=== PATIENT | female | born 1945 | race Caucasian/White ===

== ENCOUNTER 2017-10-10 16:36 | Inpatient (IN) | payer MEDICARE, SELFPAY ==
[2017-10-10 16:37] VITALS: BP 144/84; PULSE 99; RESP 19; TEMP 39.4; O2SAT 90; BMI 24.5
--- NOTE | 2017-10-10 16:54 | RAD_ITS ---
XR Chest 1 View INDICATION: COUGH, WEAKNESS, AND CHILLS SINCE TUESDAYTEMP 103 IN TRIAGE COMPARISON: None TECHNIQUE: Frontal view of the chest FINDINGS: The heart size is mildly enlarged. Hazy and patchy opacities are seen at the left lung base. Lungs are hyperinflated with coarsened interstitial markings. Osseous structures are grossly unremarkable. RAD/Chest 1 View (Portable) IMPRESSION: Mild cardiomegaly. COPD. Patchy opacities at the left lung base, cannot exclude developing pneumonic infiltrate, consider follow-up with upright PA and lateral views.. at 1714 Reported and signed by: Neema Wiggins MD Electronically Signed: Neema Wiggins MD at 16:13 EST Tel , Service support ,
--- NOTE | 2017-10-10 16:58 | ED.DCSUM_ITS ---
- ER Visit Summary Date of Service: 10/10/17 Chief Complaint: [] Fever, URI symptoms History of Present Illness: The patient is a 72 F [] complaining of fever, generalized weakness, myalgias, cough productive of yellow sputum beginning 4-5 days ago. Patient denies chest pain or shortness of breath. Reports past medical history of hypertension. No other complaints at this time. Physical Examination: [] Temperature: 103. Remainder of vitals unremarkable. Cardiovascular exam is regular rate and rhythm. Lungs were clear to auscultation. Abdomen is soft nontender. No lower extremity edema. Test Results: [] Flu: Positive. CBC, BMP within normal limits with the exception of a potassium of 3.2. Chest x-ray shows left lower lobe infiltrate. Emergency Department Course and Treatment: [] Patient given intravenous fluids, Toradol. In light of the patient's overarching clinical picture with a high temperature and continued coughing she was given intravenous antibiotics for what is likely a early community-acquired pneumonia. We ambulated the patient with pulse oximetry and her pulse ox dropped to 89%. Case was discussed with the hospitalist. Patient will be admitted to the general medical floor for further treatment and evaluation. Labs and diagnostic studies discussed with the patient and they are amenable to admission. Treatment Plan: [] Admission for intravenous antibiotics and further symptom control. Disposition: [] Admission, stable. Impression: [] Community acquired pneumonia Influenza This note was generated with [employer] dictation software. It may contain incorrect words, spelling, and punctuation that were not noted in review of the chart prior to signing ED Disposition - Plan for ED Patient: Chief Complaint: Cough Referrals: Mingo Serna III, MD [Primary Care Provider] -
[2017-10-10] MEDS: Ketorolac 15 MG/ML Vial IV (17:23)
[2017-10-10] MEDS: 0.9% Normal Saline 1,000 ML 1000 ML IV (17:23)
[2017-10-10 17:24] LABS: Absolute Neutrophil Count 7.5 X10^3/uL (2.0-7.7); Basophil# 0.02 X10^3/uL; Basophil% 0.2 % (0-1); Hematocrit 40.3 % (37-47); Hemoglobin 13.7 g/dl (12.0-15.0); Lymphocyte % 7.7 % (19-41); Mean Corpuscular Hgb 29.5 pg (27.0-32.0); Mean Corpuscular Volume 86.9 fL (81-99); Mean Platelet Vol. 10.7 fl (6.2-12.0); Monocyte# 0.87 X10^3/uL; Monocyte% 9.5 % (0-10); Neutrophil % 82.4 % (47-70); Platelet Count 108 K/mm3 (150-450); RBC Distribution Width CV 13.8 % (11.6-14.6); RBC Distribution Width SD 43.9 fl (35.1-43.9); Red Blood Count 4.64 M/mm3 (4.2-5.4); White Blood Count 9.1 K/mm3 (4.4-11.0)
[2017-10-10 17:51] LABS: POSITIVE COUNT NO; POSITIVE DIFFERENTIAL NO; POSITIVE MORPHOLOGY NO
[2017-10-10 17:58] LABS: Anion Gap 10 (5-15); BUN 10 mg/dL (7-18); BUN/Creat Ratio 14.2 RATIO (10-20); Calcium,Total 8.2 mg/dL (8.5-10.1); Chloride 100 mmol/L (98-107); EST Glomerular Filtration Rate 87 mL/min (>60); Est Glom Filt Rate - Afr Amer 105 mL/min (>60); Estimated Creatinine Clearance 42.07 ml/min; Glucose 118 mg/dL (70-110); Potassium 3.2 mmol/L (3.5-5.1); Sodium Level 134 mmol/L (136-145)
[2017-10-10 19:22] VITALS: BP 143/65; PULSE 82; RESP 20; TEMP 38.5; O2SAT 92
[2017-10-10 19:39] VITALS: BP 143/65; PULSE 82; RESP 20; TEMP 38.5; O2SAT 92
[2017-10-10 21:05] VITALS: BP 129/60; PULSE 84; RESP 23; O2SAT 94
--- NOTE | 2017-10-10 21:27 | NURSING ---
321 FLU, PNEUMONIA LESIA
--- NOTE | 2017-10-10 21:39 | PCM.HP.STD ---
Problem List (1) HTN (hypertension) Status: Chronic (2) Influenza A Status: Acute History of Present Illness Date of Admission: 10/10/17 Chief Complaint: CAP The patient is a 72 year old female w/ h/o HTN admitted for CAP. She has been coughing since Thursday. She was in her usual state of health until within a few hours she experienced generalized malaise and myalgia. Malaise worsened over the next few days. She developed a productive cough. The intensity and frequency of the cough increased over the next few days. Nothing made the coughing better or worse. The quantity of sputum increased and was yellow. Her was ill a few days prior to her being ill. Past Medical History Past Medical History (Chronic Problems): Chronic Problems HTN (hypertension) (Chronic) Allergies No Known Allergies Allergy (Verified 10/10/17 16:37) Home Medications: Ambulatory Orders Medication Instructions Recorded Adrenix 1 tab PO DAILY 10/10/17 Atenolol [Tenormin] 25 mg PO DAILY 10/10/17 Citsym 1 tab PO QHS 10/10/17 Citsym 2 tab PO BREAKFAST 10/10/17 Integracel 1 dose PO DAILY 10/10/17 Lymphex 1 tab PO DAILY 10/10/17 Pelimune 2 tab PO TID 10/10/17 Smoking Status: Never smoker - *Family History Maternal History Items: No pertinent history Review of Systems Constitutional: Reports: Malaise, Weakness, Fatigue. Denies: Chills, Fever, Weight Change HEENT: Denies: Head Aches, Sinus Congestion, Sinus Drainage Cardiovascular: Denies: Chest Pain, Palpitations Respiratory: Reports: Cough, Shortness of Breath, Sputum production, Wheezing Gastrointestinal: Denies: Abdominal Pain, Nausea, Vomiting Genitourinary: Denies: Dysuria Musculoskeletal: Denies: Joint Pain, Joint Tenderness Skin: Denies: Rash, Wounds Neurological: Denies: Numbness, Tingling, Focal weakness Psychiatric: Denies: Anxiety, Depression, Homicidal Ideations, Suicidal Ideations Hematologic/ Lymphatic: Denies: Easy Bruising, Easy Bleeding VTE Information - Inpt Only VTE Present on Admission: No VTE Mechan Device Prophylaxis: SCD's VTE Pharm Prophylaxis ordered?: Yes Patient Problems: Active and Suspected Problems Influenza A (Acute) - Physical Exam General: Alert, Oriented x3, Cooperative HEENT: Atraumatic, PERRLA, EOMI, Normocephalic Neck: Supple, No JVD, Negative Carotid Bruits Lungs: Diminished, Rales - Crackle at left base Cardiovascular: Regular rate, No murmurs Abdomen: Bowel Sounds Present, Soft, Non Tender Extremities: No edema, Capillary Refill Less than 3 Seconds Skin: No rashes, No breakdown Musculoskeletal: No Tenderness to Palpation of Joints or Extremities Neurological: Cranial nerves II-XII grossly intact Psych/Mental Status: Normal Affect, Appropriate Vital Signs Temp Pulse Resp BP Pulse Ox 101.3 F H 84 23 H 129/60 H 94 10/10/17 19:39 10/10/17 21:05 10/10/17 21:05 10/10/17 21:05 10/10/17 21:05 Assessment/Plan Active and Suspected Problems Influenza A (Acute) 72 year old female w/ h/o HTN admitted for CAP. 1) CAP: Most likely secondary influenza pneumonia vs staph. Influenza pneumonia can lead to staph infection. Will start ceftriaxone and azithromycin for now. Will also start tamiflu given that she may still benefit from it given its several days out already. Cultures pending. 2) HTN: C/w meds. Monitor. 3) Hyponatremia: Likely secondary to hypovolemia hyponatremia. Hydration. 4) Hypokalemia: Replete. Monitor. 5) Prophylaxis: Heparin.
[2017-10-10 22:01] VITALS: BMI 24.4
[2017-10-10 22:12] VITALS: BP 152/74; PULSE 88; RESP 24; TEMP 38.3; O2SAT 94
[2017-10-10] MEDS: guaiFENesin 1,200 MG Tablet 1200 MG PO (23:12)
[2017-10-10] MEDS: Oseltamivir Phosphate 30 MG Capsule PO (23:12)
[2017-10-10] MEDS: 0.9% Normal Saline 1,000 ML 100 ML IV (23:13)
[2017-10-10 23:19] VITALS: RESP 24
[2017-10-11] VITALS (12 sets, daily range): BP systolic 109–143; BP diastolic 55–71; PULSE 81–88; RESP 20–26; TEMP 37.1–39.5; O2SAT 92–97
[2017-10-11] MEDS: Acetaminophen 325 MG Tablet 650 MG PO (00:09)
--- NOTE | 2017-10-11 00:35 | NURSING ---
Called to Lab for stat labs
[2017-10-11 01:15] LABS: Absolute Lymphocyte Count 1.63 X10^3/ul (0.83-4.51); Absolute Neutrophil Count 7.9 X10^3/uL (2.0-7.7); Basophil# 0.03 X10^3/uL; Basophil% 0.3 % (0-1); Color, Urine Yellow (Yellow); Differential Indicated SCAN CRITERIA MET; Eosinophil# 0.01 X10^3/uL; Eosinophils% 0.1 % (0-5); Glucose, Dipstick Normal (Normal); Hematocrit 36.7 % (37-47); Hemoglobin 12.8 g/dl (12.0-15.0); Ketone-Dipstick 15 mg/dl (Negative); Leukocyte Esterase-Dipstick Negative /ul (Negative); Lymphocyte # 1.63 X10^3/ul (4.0); Lymphocyte % 15.8 % (19-41); Mean Corp Hgb Conc 34.9 g/gl (32-36); Mean Corpuscular Hgb 29.9 pg (27.0-32.0); Mean Corpuscular Volume 85.7 fL (81-99); Mean Platelet Vol. 11.6 fl (6.2-12.0); Monocyte# 0.73 X10^3/uL; Monocyte% 7.1 % (0-10); Neutrophil # 7.85 X10^3/uL (2.7-7.7); Neutrophil % 76.2 % (47-70); Nitrite-Dipstick Negative (Negative); Occult Blood-Urine 150 /ul (Negative); POSITIVE COUNT NO; POSITIVE DIFFERENTIAL NO; POSITIVE MORPHOLOGY YES; Platelet Count 104 K/mm3 (150-450); Protein-Dipstick 30 mg/dl (Negative); RBC Distribution Width CV 13.8 % (11.6-14.6); RBC Distribution Width SD 42.5 fl (35.1-43.9); Red Blood Count 4.28 M/mm3 (4.2-5.4); Specific Gravity, Urine 1.015 (1.002-1.030); Urine Bilirubin Dipstick Negative (Negative); Urine Clarity Clear (Clear); Urine Urobilinogen Normal (Normal); White Blood Count 10.3 K/mm3 (4.4-11.0)
[2017-10-11 01:25] LABS: Lactic Acid 1.1 mmol/L (0.4-2.0)
[2017-10-11 01:27] LABS: ALB/GLOB Ratio 0.9 RATIO (0.9-2.4); AST(SGOT) 42 U/L (15-37); Alanine Aminotransfer ALT/SGPT 34 U/L (12-78); Albumin, Serum 3.1 g/dL (3.4-5.0); Alkaline Phosphatase 37 U/L (45-117); Anion Gap 8 (5-15); BUN 8 mg/dL (7-18); BUN/Creat Ratio 12.7 RATIO (10-20); Calcium,Total 7.7 mg/dL (8.5-10.1); Chloride 103 mmol/L (98-107); Creatinine, Serum 0.63 mg/dL (0.55-1.02); EST Glomerular Filtration Rate 99 mL/min (>60); Est Glom Filt Rate - Afr Amer 120 mL/min (>60); Estimated Creatinine Clearance 42.07 ml/min; Globulin 3.5 g/dL (2.2-4.2); Glucose 121 mg/dL (70-110); Potassium 3.4 mmol/L (3.5-5.1); Protein, Total 6.6 g/dL (6.4-8.2); Sodium Level 136 mmol/L (136-145)
[2017-10-11 01:41] LABS: Differential Comment SCANNED
[2017-10-11 08:27] LABS: Hematocrit 39.4 % (37-47); Hemoglobin 13.2 g/dl (12.0-15.0); Mean Corp Hgb Conc 33.5 g/gl (32-36); Mean Corpuscular Hgb 29.5 pg (27.0-32.0); Mean Corpuscular Volume 88.1 fL (81-99); Mean Platelet Vol. 11.8 fl (6.2-12.0); Platelet Count 97 K/mm3 (150-450); RBC Distribution Width CV 14.1 % (11.6-14.6); RBC Distribution Width SD 45.1 fl (35.1-43.9); Red Blood Count 4.47 M/mm3 (4.2-5.4); White Blood Count 13.3 K/mm3 (4.4-11.0)
[2017-10-11 08:38] LABS: Scan Indicated on CBC? Y/N NO
[2017-10-11 08:46] LABS: ALB/GLOB Ratio 0.8 RATIO (0.9-2.4); AST(SGOT) 38 U/L (15-37); Alanine Aminotransfer ALT/SGPT 31 U/L (12-78); Alkaline Phosphatase 38 U/L (45-117); Anion Gap 7 (5-15); BUN 7 mg/dL (7-18); BUN/Creat Ratio 10.9 RATIO (10-20); Calcium,Total 8.1 mg/dL (8.5-10.1); Chloride 109 mmol/L (98-107); Creatinine, Serum 0.64 mg/dL (0.55-1.02); EST Glomerular Filtration Rate 97 mL/min (>60); Est Glom Filt Rate - Afr Amer 117 mL/min (>60); Estimated Creatinine Clearance 42.07 ml/min; Globulin 3.6 g/dL (2.2-4.2); Glucose 100 mg/dL (70-110); Magnesium 1.9 mg/dL (1.8-2.4); Potassium 4.1 mmol/L (3.5-5.1); Protein, Total 6.6 g/dL (6.4-8.2); Sodium Level 140 mmol/L (136-145)
[2017-10-11] MEDS: 0.9% Normal Saline 1,000 ML 100 ML IV ×2 (09:27→21:14)
[2017-10-11] MEDS: Atenolol 25 MG Tablet PO (09:29)
[2017-10-11] MEDS: guaiFENesin 1,200 MG Tablet 1200 MG PO ×2 (09:29→21:13)
[2017-10-11] MEDS: Oseltamivir Phosphate 30 MG Capsule PO ×2 (09:29→21:13)
--- NOTE | 2017-10-11 10:02 | PN_ITS ---
Patient Problems: Active and Suspected Problems Influenza A (Acute) Subjective: Patient is a 72-year-old lady with past medical history significant for hypertension who presented with progressive shortness of breath her admission assessment was consistent with acute influenza A infection with superimposed pneumonia admitted to regular nursing floor where patient has since been managed per protocol. Objective: GENERAL: Appears ill looking HEENT: Clear conjunctiva, NECK; supple, normal thyroid, CHEST: Diminished to auscultation bilaterally, HEART: Regular S1 S2, no audible murmurs ABDOMEN: soft, normoactive bowel sounds, RECTAL: deferred EXTREMITIES: No edema, no clubbing, no cyanosis. CALL CENTER SUPPORT CONSULTANT: Awake, no lateralizing signs. SKIN: No lesions no erythema, Vitals/I&O's: Vital Signs Temp Pulse Resp BP Pulse Ox 99 F 81 20 H 122/62 H 97 10/11/17 09:00 10/11/17 09:00 10/11/17 09:21 10/11/17 09:00 10/11/17 09:21 Oxygen Flow Rate 3 Oxygen Delivery Method Nasal Cannula Weight: 62.5 kg Body Mass Index (BMI) 24.4 Intake and Output for Last 24 Hours 10/09/17 10/10/17 10/11/17 23:59 23:59 23:59 Intake Total 938 / 938 Output Total 100 / 100 Balance 838 / 838 Microbiology Past 72 Hours 10/11/17 00:45 Urine, Clean Catch Streptococcus pneumoniae Antigen (M - Final 10/11/17 00:45 Urine, Clean Catch Legionella Antigen - Final Laboratory Results 10/11/17 00:45: Lactic Acid 1.1 10/11/17 00:45: WBC 10.3, RBC 4.28, Hgb 12.8, Hct 36.7 L, MCV 85.7, MCH 29.9, MCHC 34.9, RDW 13.8, RDW Differential 42.5, Plt Count 104 L, MPV 11.6, Immature Gran % (Auto) 0.500, Neut % (Auto) 76.2 H, Lymph % (Auto) 15.8 L, Saunders % (Auto) 7.1, Eos % (Auto) 0.1, Baso % (Auto) 0.3, Absolute Neuts (auto) 7.9 H, Absolute Lymphs (auto) 1.63, Total Counted Not Reportable, Differential Comment SCANNED 10/11/17 00:45: Sodium 136, Potassium 3.4 L, Chloride 103, Carbon Dioxide 25.0, Anion Gap 8, BUN 8, Creatinine 0.63, Estim Creat Clear Calc 42.07, Est GFR (MDRD ) Af Amer 120, Est GFR (MDRD) Non-Af 99, BUN/Creatinine Ratio 12.7, Glucose 121 H, Calcium 7.7 L, Total Bilirubin 0.90, AST 42 H, ALT 34, Alkaline Phosphatase 37 L, Total Protein 6.6, Albumin 3.1 L, Globulin 3.5, Albumin/Globulin Ratio 0.9 10/11/17 00:45: Urine Color Yellow, Urine Clarity Clear, Urine pH 6.0, Ur Specific [place] 1.015, Urine Protein 30 H, Urine Glucose (UA) Normal, Urine Ketones 15 H, Urine Occult Blood 150 H, Urine Nitrite Negative, Urine Bilirubin Negative, Urine Urobilinogen Normal, Ur Leukocyte Esterase Negative 10/11/17 07:35: WBC 13.3 H, RBC 4.47, Hgb 13.2, Hct 39.4, MCV 88.1, MCH 29.5, MCHC 33.5, RDW 14.1, RDW Differential 45.1 H, Plt Count 97 L, MPV 11.8 10/11/17 07:35: Sodium 140, Potassium 4.1, Chloride 109 H, Carbon Dioxide 24.0, Anion Gap 7, BUN 7, Creatinine 0.64, Estim Creat Clear Calc 42.07, Est GFR (MDRD ) Af Amer 117, Est GFR (MDRD) Non-Af 97, BUN/Creatinine Ratio 10.9, Glucose 100 , Calcium 8.1 L, Magnesium 1.9, Total Bilirubin 1.00, AST 38 H, ALT 31, Alkaline Phosphatase 38 L, Total Protein 6.6, Albumin 3.0 L, Globulin 3.6, Albumin/Globulin Ratio 0.8 L Current Medications Acetaminophen (Tylenol) 650 mg PO Q4H PRN PRN PRN Reason: FEVER Last Admin: 10/11/17 00:09 Dose: 650 mg Atenolol (Tenormin (Beta Maria Luisa)) 25 mg PO DAILY [facility] Last Admin: 10/11/17 09:29 Dose: 25 mg Guaifenesin (Mucinex) 1,200 mg PO BID [facility] Last Admin: 10/11/17 09:29 Dose: 1,200 mg Sodium Chloride () 1,000 mls @ 100 mls/hr IV .Q10H [facility] Last Admin: 10/11/17 09:27 Dose: 100 mls/hr Ceftriaxone Sodium (Rocephin) 1 gm in 50 mls @ 100 mls/hr IV Q24 [facility] Azithromycin 500 mg/ Dextrose 255 mls @ 250 mls/hr IV Q24 [facility] Stop: 10/13/17 11:02 Oseltamivir Phosphate (Tamiflu) 30 mg PO BID [facility] Stop: 10/15/17 10:01 Last Admin: 10/11/17 09:29 Dose: 30 mg Sodium Chloride () 5 - 30 ml IV UD PRN PRN Reason: SALINE FLUSH Assessment/Plan Active and Suspected Problems Influenza A (Acute) Patient is a 72-year-old lady with past medical history significant for hypertension who presented with progressive shortness of breath her admission assessment was consistent with acute influenza A infection with superimposed pneumonia admitted to regular nursing floor where patient has since been managed per protocol 1. Acute influenza A infection patient treated with pneumonia 2. Pneumonia superimposed on acute influenza A infection: Cultures were sent patient started on Rocephin and Zithromax in addition to supplemental oxygen 3. Hyponatremia secondary to hypovolemic hyponatremia resolved with IV resuscitation 4. Hypokalemia corrected per protocol 5. Hypertension patient blood pressure stable did continue with home meds 6. DVT prophylaxis SC heparin Code Visit Inpatient E&M: 33452 [facility] Hosp L3
[2017-10-11] MEDS: Ceftriaxone 1 GM/50 ML BAG IV (10:48)
--- NOTE | 2017-10-11 21:56 | NURSING ---
Blood sugar 95, orange juice provided before going to bed.
[2017-10-12] VITALS (8 sets, daily range): BP systolic 121–142; BP diastolic 64–71; PULSE 71–84; RESP 16–20; TEMP 36.7–37.3; O2SAT 93–95
[2017-10-12] MEDS: 0.9% Normal Saline 1,000 ML 100 ML IV (06:40)
[2017-10-12] MEDS: Ceftriaxone 1 GM/50 ML BAG IV (08:44)
[2017-10-12] MEDS: Atenolol 25 MG Tablet PO (08:44)
[2017-10-12] MEDS: Oseltamivir Phosphate 30 MG Capsule PO (08:44)
[2017-10-12] MEDS: guaiFENesin 1,200 MG Tablet 1200 MG PO (08:44)
--- NOTE | 2017-10-12 10:13 | NURSING ---
1000 zithromax not on unit for pt administration-Rx called they said it was sent earlier, not in tubes/tube system, not in either med room or fridge-charge nurse on ms2 called, she will look
--- NOTE | 2017-10-12 11:10 | CASEMGMT ---
RN CHEPE Face to Face with patient for initial transition planning/care coordination assessment. RN CM introduced self and role at [facility]. Patient lying in bed, alert and oriented. Patient willing to participate in assessment and is able to answer all questions appropriately. Care providers, pharmacy, and demographics verified. See link attached. Patient wishes to discharge home, denies need for home health at this time. Patient states she has no further needs or concerns at this time. CM to follow for discharge planning needs that may arise. Disposition Plan: Patient to discharge home with family support and follow-up plans in place.
--- NOTE | 2017-10-12 16:22 | PCM.DC ---
- Discharge Diagnoses Current Active Problems: Current Active and Chronic Problems HTN (hypertension) (Chronic) Influenza A (Acute) You will use the following diet at home:: Regular Discharge Activity: Return to Normal Activity Allergies/Adverse Reactions: Allergies No Known Allergies Allergy (Verified 10/10/17 16:37) Medications to take at Discharge Adrenix 1 tab PO DAILY 10/10/17 Atenolol [Tenormin] 25 mg PO DAILY 10/10/17 Citsym 1 tab PO QHS 10/10/17 Citsym 2 tab PO BREAKFAST 10/10/17 Integracel 1 dose PO DAILY 10/10/17 Lymphex 1 tab PO DAILY 10/10/17 Pelimune 2 tab PO TID 10/10/17 Cefdinir [Omnicef [equiv]] 300 mg PO Q12H #10 cap 10/12/17 Oseltamivir Phosphate [Tamiflu] 30 mg PO BID #6 cap 10/12/17 The following prescriptions were given: Cefdinir [Omnicef [equiv]] 300 mg PO Q12H #10 cap Oseltamivir Phosphate [Tamiflu] 30 mg PO BID #6 cap Primary Care Physician: Mingo Serna III, MD [Primary Care Provider] - In 1 Week
--- NOTE | 2017-10-12 16:23 | PCM.DC.SUM ---
Discharge Date and Diagnosis Date of Admission: 10/10/17 Date of Discharge: 10/12/17 - Primary Discharge Diagnosis Active and Suspected Problems Influenza A (Acute) - Secondary Discharge Diagnosis Chronic Problems HTN (hypertension) (Chronic) Hospital Course and Treatment Operations: None Procedures: None Summary of Care Provided: The patient is a 72 year old F here today with progressive cough, shortness of breath and weakness. Chest x-ray in the emergency room showed left lobe opacities, her influenza test was positive for influenza A. The patient was placed on Tamiflu and antibacterial agents. She did improve clinically with treatment , we are discharging home to complete course of Tamiflu and oral antibiotics. On exam at the time of discharge; vital signs were stable. He was alert and oriented to time place and person. He did not appear to be any form of distress. S1 and S2 heard no murmur or gallop Lung exam was clear to auscultation with no adventitious sounds. Abdomen was soft nontender with normal bowel sounds. extremity exam did not reveal any edema, palpable pulses bilaterally. Neurologic exam was grossly intact. Discharge Diet: No Restrictions Discharge Activity: Return to Normal Activity Home Medications: Medications to take at Discharge Adrenix 1 tab PO DAILY 10/10/17 Atenolol [Tenormin] 25 mg PO DAILY 10/10/17 Citsym 1 tab PO QHS 10/10/17 Citsym 2 tab PO BREAKFAST 10/10/17 Integracel 1 dose PO DAILY 10/10/17 Lymphex 1 tab PO DAILY 10/10/17 Pelimune 2 tab PO TID 10/10/17 Cefdinir [Omnicef [equiv]] 300 mg PO Q12H #10 cap 10/12/17 Oseltamivir Phosphate [Tamiflu] 30 mg PO BID #6 cap 10/12/17 Following Prescrptions Were Given to Patient: Cefdinir [Omnicef [equiv]] 300 mg PO Q12H #10 cap Oseltamivir Phosphate [Tamiflu] 30 mg PO BID #6 cap Primary Care Physician: Mingo Serna III, MD [Primary Care Provider] - In 1 Week Disposition: Home Patient Condition:: Good Meaningful Use Info Meaningful Use Diagnoses (Choose all that apply): None applicable Code Visit Inpatient E&M: 65317 [facility] Hosp
== END 2017-10-12 17:30 | disposition home or self-care (01) | DRG 194 ==
LOC: ED 17:04 → MS3 21:30
PROVIDERS: Admitting Provider Internal Medicine; Emergency Provider Emergency Medicine; Family Provider Family Medicine; PCP Family Medicine; Visit Provider Internal Medicine
DX: J10.00 Influenza due to other identified influenza virus with unspecified type of pneumonia (principal); E87.1 Hypo-osmolality and hyponatremia; I10 Essential (primary) hypertension; E87.6 Hypokalemia; Z79.899 Other long term (current) drug therapy
CPT/HCPCS: 36415; 71045; 80048; 80053; 81002; 83605; 83735; 85025; 85027; 87040; 87070; 87205; 87449; 87804; 97802; 99283; J7030; J7050; A4216

== ENCOUNTER → 2021-04-04 12:25 | Outpatient (CLI) | payer MEDICARE, SELFPAY ==
[2021-04-04 07:10] VITALS: BMI 24.2
--- NOTE | 2021-04-04 08:15 | CYST_PTH ---
PATIENT: JESÚS JEFF LOC: LAB U#:[id number] AGE/SX: 79/F ROOM: RE04/04/[address]: Dr. Cristofer Serna MD : 1945 BED: DIS: SPEC #: [id number] RECD: 04/04/21 12:01 STATUS: KARINE DENNISE #: [id number] NICOLLE: 04/04/21 08:[address]: Cristofer Serna DEPT: SURGICAL PATHOLOGY RECD BY: Leora Villatoro ENTERED: 04/04/21 12:58 SP TYPE: Cyst OTHR DR: No Primary Care Phys Tissues: CYST Procedures: Surgery Specimen Level III HEADER OPERATION: Excision scalp ruptured sebaceous cyst PRE-OP DIAGNOSIS: Multiple scalp cysts TISSUE SUBMITTED: Ruptured sebaceous cyst of scalp MICROSCOPIC DIAGNOSIS Sebaceous cyst of scalp, excision: Trichilemmal cysts with focal calcifications. See comment. CONCEPCIÓN:rafita 04/05/2021 COMMENT The largest cyst measures 1 cm in greatest dimension. Three additional smaller cysts are also noted. MICROSCOPIC DESCRIPTION Slides are reviewed. GROSS DESCRIPTION Received in fixative is one container labeled with the patient's name and designated scalp. The specimen consists of a piece of skin with underlying tissue. The skin ellipse measures 3.5 x 0.7 cm. The underlying tissue shows a cyst measuring 1 x 1 x 1 cm. The rest of the skin measures up to 0.5 cm in thickness. The specimen is inked and serially sectioned and reveals the cyst is filled with grimaldo sebum-like material. The entire specimen is submitted in two cassettes. / SJ:rafita 04/04/21 TC:5 CPT: 63207
== END ==
PROVIDERS: Referring Provider Surgery; Visit Provider Surgery
DX: L72.12 Trichodermal cyst (principal)
CPT/HCPCS: 88304

== ENCOUNTER 2023-01-29 21:38 | Emergency (ER) | payer MEDICARE, SELFPAY ==
[2023-01-29 21:39] VITALS: BP 143/76; PULSE 93; RESP 16; TEMP 36.4; O2SAT 98
--- NOTE | 2023-01-30 00:01 | EDS_ITS ---
HPI History of Present Illness Chief Complaint: Other, Pain/Inj Informant: patient Narrative Narrative: Patient presents just after she bumped into something with her left lower leg, and suddenly had bleeding from that area that was significant and she had difficulty stopping. Prior to coming here, she caked it in [employer] pepper. She denies any systemic symptoms or pain. History of varicose veins. She takes no anticoagulants or antiplatelet medications, just a lot of supplements and antihypertensives. PFSH PFS Medical History HTN (hypertension) Scalp cyst Home Medications Adrenix 1 tab PO DAILY ENERGY SUPPLEMENT 10/10/17 [History Last Taken 10/10/17 07:00] Citsym 1 tab PO QHS LEG SWELLING 10/10/17 [History Last Taken 10/09/17 17:00] Citsym 2 tab PO BREAKFAST LEG EDEMA 10/10/17 [History Last Taken 10/10/17 07:00] Integracel 1 dose PO DAILY SUPPLEMENT FOR ARTERIES 10/10/17 [History Last Taken 10/10/17 07:00] Lymphex 1 tab PO DAILY LEG SWELLING 10/10/17 [History Last Taken 10/10/17 07:00] Pelimune 2 tab PO TID IMMUNE SYSTEM 10/10/17 [History Last Taken 10/10/17 07:00] hydrochlorothiazide 12.5 mg capsule 12.5 mg PO DAILY 03/14/21 [History Last Taken Unknown] losartan 50 mg tablet 50 mg PO DAILY 03/14/21 [History Last Taken Unknown] Allergy/AdvReac Type Severity Reaction Status Date / Time lisinopril Allergy Unknown Unknown Verified 01/29/23 21:41 Family History Sister Breast cancer CVA (cerebral vascular accident) Father Hypertension Surgical History History of removal of cyst Social History Smoking Status: Never smoker second hand exposure: No alcohol intake: never caffeine: Yes what type of physical activity do you participate in: walking and running ROS ROS ED Constitutional Constitutional ED: Denies chills or fever(s) Musculoskeletal Musculoskeletal: Denies extremity pain or neck pain Integumentary Reports Abrasions; Denies rash or wounds Neurologic Neurologic: Denies paresthesias or weakness EXAM Physical Exam Const Vital Signs: 01/29/23 21:39 Temperature 97.6 F L Temperature Source Temporal Pulse Rate 93 Respiratory Rate 16 Blood Pressure 143/76 H Blood Pressure Mean 98 Pulse Ox 98 Oxygen Delivery Method Room Air Positive well nourished and well developed General Appearance ED: well developed and NAD Neck full ROM and supple Back/Spine normal ROM and normal to inspection Extremity normal to inspection and full ROM Extremity Narrative: Multiple varicose veins especially in the area of interest distal left lower extremity, but also present on the right. There is a small scab/clot over a point over one of the varicose veins left lateral/anterior distal lower leg. There is no active bleeding or tenderness. I scraped the lot of cayenne pepper off of her leg. There were no other lesions or signs of infection. Neurovascular intact distally. Neuro oriented x3, no focal motor deficits and no sensory deficits noted Sensorium / Orientation: alert Psych mental status grossly normal and thought process normal Skin Skin Narrative: Pinpoint sized wound over varicose vein left lower leg, see above. Rashes: no rashes MDM MDM MDM Narrative Medical decision making narrative: No active bleeding. Patient reassured, I do not think she needs blood counts, her blood pressure is relatively well controlled here, and I will have nursing place a bandage with a mild amount of pressure over it and give the patient appropriate instructions and reasons to return. Discharge Plan Triage Chief Complaint: Other, Pain/Inj ED Provider: Isidro Benavides Dx/Rx/DC Orders Clinical Impression: Hemorrhage of varicose veins of left lower extremity Instructions: ED Varicose Veins Prescriptions: No Action hydrochlorothiazide 12.5 mg capsule 12.5 mg PO DAILY losartan 50 mg tablet 50 mg PO DAILY Adrenix 1 tab PO DAILY Citsym 2 tab PO BREAKFAST Citsym 1 tab PO QHS Integracel 1 dose PO DAILY Label Comments: TAKES 1 SCOOP DAILY Lymphex 1 tab PO DAILY Pelimune 2 tab PO TID Primary Care Provider: Care Physician,No Primary Referrals: Care Physician,No Primary [Primary Care Provider] - Doctor,Your [Non-Staff] - As Needed (or ER if you cannot stop recurrent bleeding) Disposition Disposition: Home, Self Care
[2023-01-30 00:13] VITALS: BMI 24.8
[2023-01-30 00:19] VITALS: BP 142/74; PULSE 69; RESP 18; O2SAT 96; O2SAT 97
== END 2023-01-30 00:24 | disposition home or self-care (01) ==
LOC: ED 01-30 00:07
PROVIDERS: Emergency Provider Emergency Medicine; Visit Provider Emergency Medicine
DX: I83.892 Varicose veins of left lower extremity with other complications (principal); I10 Essential (primary) hypertension
CPT/HCPCS: 99284

== ENCOUNTER → 2023-11-05 | Outpatient (CLI) | payer MEDICARE, SELFPAY ==
[2023-11-05 11:07] LABS: AST(SGOT) 27 U/L (15-37); Alanine Aminotransfer ALT/SGPT 33 U/L (13-56); Albumin, Serum 3.7 g/dL (3.2-5.0); Alkaline Phosphatase 45 U/L (45-117); Anion Gap 2 (5-15); BUN 13 mg/dL (7-18); BUN/Creat Ratio 20.4 RATIO (10-20); Calcium,Total 8.8 mg/dL (8.5-10.1); Chloride 103 mmol/L (98-107); Creatinine, Serum 0.64 mg/dL (0.55-1.02); EST Glomerular Filtration Rate 96 mL/min (>60); Est Glom Filt Rate - Afr Amer 116 mL/min (>60); Globulin 3.8 g/dL (2.2-4.2); Glucose 93 mg/dL (74-106); Magnesium 2.1 mg/dL (1.6-2.6); Potassium 2.8 mmol/L (3.5-5.1); Protein, Total 7.5 g/dL (6.4-8.2); Sodium Level 135 mmol/L (136-145)
--- OUTSIDE RECORDS SUMMARY | 2023-11-05 12:13 | XMS RPT_ITS | CCD ---
Author Name Unknown Address [facility] [address] [place] [id number] Organization [facility] Care Team Providers Care Gang Drill Press Operator Name Role Phone Berenice Zamora MD Primary Care Provider BERENICE ZAMORA Primary Care Unavailable AUGUSTIN BENEDICT Referring Unavailable AUGUSTIN BENEDICT Referring Unavailable BERENICE ZAMORA Primary Care Unavailable BERENICE ZAMORA Primary Care Unavailable AUGUSTIN BENEDICT Attending Unavailable BERENICE ZAMORA Primary Care Unavailable KENDRA BRICENO Attending Unavailable BERENICE ZAMORA Primary Care Unavailable KENDRA BRICENO Attending Unavailable BERENICE ZAMORA Primary Care Unavailable KENDRA BRICENO Attending Unavailable BERENICE ZAMORA Primary Care Unavailable KENDRA BRICENO Attending Unavailable Allergies Allergy Classification Reported Allergen(s) Allergy Type Date of Onset Reaction(s) Facility (7 sources) Lisinopril; Translations: [LISINOPRIL] Drug Allergy 05-27-2018 Cough [facility] Medications Current Medications Medication Drug Class(es) Dates Sig (Normalized) Sig (Original) cephalexin 500 mg oral capsule (3 sources) Cephalosporin Antibacterial Start: 03-17-2023 End: 03-27-2023 take 1 capsule by mouth four times daily cephALEXin (KEFLEX) 500 mg capsule Indications: Non-healing wound of left lower extremity Take 1 capsule by mouth four times daily for 10 days. 40 capsule 0 03/17/2023 03/27/2023 Active Completed/Discontinued Medications Medication Drug Class(es) Dates Sig (Normalized) Sig (Original) COMPOUNDED PRESCRIPTION (8 sources) End: 02-13-2023 COMPOUNDED PRESCRIPTION Taking supplements from [facility]: Pelimmune, Lympha EX, Adrenix, Integra Cell, NT-Bacta, Kardi-Ar, Micro-Site, Pro-Kaylyn, Para-Mac, Yoli-Ex 0 02/13/2023 Discontinued (Course of therapy completed) Problems Active Problems Problem Classification Problem Date Documented Da te Episodic/Chronic Cardiac dysrhythmias (1 source) Cardiac arrhythmia, unspecified; Translations: [Irregular heart rhythm] Onset: 10-06-2023 Chronic Essential hypertension (9 sources) Essential hypertension; Translations: [Essential (primary) hypertension] Onset: 11-16-2017 Chronic Genitourinary symptoms and ill-defined conditions (1 source) Other microscopic hematuria; Translations: [Microscopic hematuria] Onset: 10-06-2023 Episodic Other injuries and conditions due to external causes (1 source) Wound ; Translations: [Injury, unspecified, subsequent encounter] Episodic Past or Other Problems Problem Classification Problem Date Documented Da te Episodic/Chronic Fluid and electrolyte disorders (1 source) Hypokalemia; Translations: [Hypokalemia] Onset: 03-03-2023 Episodic Open wounds of extremities (3 sources) Open wound of lower limb; Translations: [Unspecified open wound, left lower leg, initial encounter] Onset: 03-17-2023 Episodic Other injuries and conditions due to external causes (1 source) Injury, unspecified, subsequent encounter; Translations: [Healing wound] Onset: 03-27-2023 Episodic Results Test Name Value Interpretation Reference Range Facil ity Vital Signs Date Time Vital Sign Value Performing Clinician Jose David odonnell 03-27-2023 14:17-0400 Body weight 63.05 kg Kendra Briceno APRN.CNP Work Phone: [facility] 03-27-2023 14:17-0400 Diastolic blood pressure 60 mm[Hg] Kendra Briceno APRN.ROTARY VENEER MACHINE OPERATOR Work Phone: [facility] 03-27-2023 14:17-0400 Heart rate 74 /min Kendra Briceno APRN.CNP Work Phone: [facility] 03-27-2023 14:17-0400 Respiratory rate 16 /min Kendra Briceno APRN.CNP Work Phone: [facility] 03-27-2023 14:17-0400 SaO2% (BldA) [Mass fraction] 97 % Kendra Briceno APRN.CNP Work Phone: [facility] 03-27-2023 14:17-0400 Systolic blood pressure 110 mm[Hg] Kendra Tannhof REPAIR SERVICE DISPATCHER.ROTARY VENEER MACHINE OPERATOR Work Phone: [facility] 03-23-2023 08:03-0400 Body weight 63.69 kg Kendramiranda Donatohof REPAIR SERVICE DISPATCHER.ROTARY VENEER MACHINE OPERATOR Work Phone: [facility] 03-23-2023 08:03-0400 Diastolic blood pressure 60 mm[Hg] Kendra Tannhof REPAIR SERVICE DISPATCHER.ROTARY VENEER MACHINE OPERATOR Work Phone: [facility] 03-23-2023 08:03-0400 Heart rate 70 /min Kendra Tannhof REPAIR SERVICE DISPATCHER.ROTARY VENEER MACHINE OPERATOR Work Phone: [facility] 03-23-2023 08:03-0400 Respiratory rate 16 /min Kendra Tannhof REPAIR SERVICE DISPATCHER.ROTARY VENEER MACHINE OPERATOR Work Phone: [facility] 03-23-2023 08:03-0400 SaO2% (BldA) [Mass fraction] 96 % Kendra Tannhof REPAIR SERVICE DISPATCHER.ROTARY VENEER MACHINE OPERATOR Work Phone: [facility] 03-23-2023 08:03-0400 Systolic blood pressure 130 mm[Hg] Kendra Tannhof REPAIR SERVICE DISPATCHER.ROTARY VENEER MACHINE OPERATOR Work Phone: [facility] 02-13-2023 09:01-0400 Body temperature 97.3 [degF] Augustin Jak REPAIR SERVICE DISPATCHER.ROTARY VENEER MACHINE OPERATOR Work Phone: [facility] 02-13-2023 09:01-0400 Body weight 63.41 kg Augustin Jak REPAIR SERVICE DISPATCHER.ROTARY VENEER MACHINE OPERATOR Work Phone: [facility] 02-13-2023 09:01-0400 Diastolic blood pressure 74 mm[Hg] Augustin Jak REPAIR SERVICE DISPATCHER.ROTARY VENEER MACHINE OPERATOR Work Phone: [facility] 02-13-2023 09:01-0400 Heart rate 51 /min Augustin Jak REPAIR SERVICE DISPATCHER.ROTARY VENEER MACHINE OPERATOR Work Phone: [facility] 02-13-2023 09:01-0400 Respiratory rate 16 /min Augustin Jak REPAIR SERVICE DISPATCHER.ROTARY VENEER MACHINE OPERATOR Work Phone: [facility] 02-13-2023 09:01-0400 SaO2% (BldA) [Mass fraction] 98 % Augustin Benedict APRN.CNP Work Phone: [facility] 02-13-2023 09:01-0400 Systolic blood pressure 118 mm[Hg] Augustin Benedict APRN.CNP Work Phone: [facility] Encounters Encounter Date Encounter Type Care Provider Facility Start: 10-06-2023 End: 10-07-2023 ambulatory [facility] Facility:[facility] Start: 03-27-2023 End: 03-28-2023 ambulatory [facility] Facility:[facility] Start: 03-27-2023 End: 03-27-2023 Patient encounter procedure Kendra Briceno APRN.CNP Work Phone: [facility] Plan of Treatment Date Care Activity Detail Author Start: 02-13-2026 DIABETES SCREEN DIABETES SCREEN [facility] Start: 12-16-2024 DIABETES SCREEN DIABETES SCREEN [facility] Start: 03-27-2024 ANNUAL PCP TEAM VP STRATEGY LETICIA DISEASE VISIT ANNUAL PCP TEAM CHRONIC DISEASE VISIT [facility] Start: 03-27-2024 BP CONTROLLED (<130/80) BP CONTROLLE D (<130/80) [facility] Start: 03-23-2024 ANNUAL PCP TEAM VP STRATEGY LETICIA DISEASE VISIT ANNUAL PCP TEAM CHRONIC DISEASE VISIT [facility] Start: 03-17-2024 ANNUAL PCP TEAM VP STRATEGY LETICIA DISEASE VISIT ANNUAL PCP TEAM CHRONIC DISEASE VISIT [facility] Start: 02-14-2024 ANNUAL PCP TEAM VP STRATEGY LETICIA DISEASE VISIT ANNUAL PCP TEAM CHRONIC DISEASE VISIT [facility] Start: 02-14-2024 BP CONTROLLED (<130/80) BP CONTROLLE D (<130/80) [facility] Start: 09-08-2023 BONE DENSITY BONE DENSITY [facility] Immunizations Immunization Date Immunization Notes Care Provider Kong sparrow 11-08-2014 tetanus and diphther ia toxoids, adsorbed, preservative free, for adult use (5 Lf of tetanus toxoid and 2 Lf of diphtheria toxoid) Duc Patel APRN.ROTARY VENEER MACHINE OPERATOR, DNP Work Phone: [facility] Work Phone: Payers Date Payer Category Payer Medicare [id number] 2022 Unknown ANTHEM BLUE CROS S AND BLUE SHIELD ANTHEM MEDIBLUE HMO [id number] 2022-Present [phone] [address] [place] [address] HMO [id number] 2021 Medicare HUMANA MEDICARE HU[employer]NA MEDICARE PPO [id number] 2021-Present [phone] [address] [address] [place] [address] PPO [id number] Social History Date Type Detail Facility Start: 09-15-2017 End: 09-08-2022 Tobacco smoking status NHIS Never smoked tobacco [facility] Start: 09-15-2017 End: 09-08-2022 Tobacco use and exposure Smokeless tobacco non-user [facility] Start: 12-16-2021 End: 03-27-2023 Alcohol intake Current non-drinker of alcohol (finding) [facility] Start: 1945 Sex Assigned At Not on file [facility] Clinical Notes 05-30-2014 to 10-06-2023 Patient InstructionsKendra Briceno APRN.CNP - 03/27/2023 2:00 PM Valentine Briceno APRN.CNP - 03/23/2023 8:20 AM EDTPatient InstructionsPatient Instructions Note Date & Type Note Facility 10-06-2023 Note HNO ID: [id number] Author: Kendra Briceno APRN.CNP Service: ? Author Type: Nurse Practitioner Type: Progress Notes Filed: 10/06/2023 1:20 PM Note Text: This is a 78 year old female who presents today with: Patient presents with: Acute Visit: irregular heart beat. and blood in urine HISTORY OF PRESENT ILLNESS: Jesús June is a 78 year old female. Patient presents with: Acute Visit: irregular heart beat. and blood in urine Here in the office with several concerns, refers that she went to her Chiropractor early September and was told she had an irregular heart beat as well as small amount of blood in the urine. Palpitations: history of HTN, denies feeling any palpitations, skipped beats, chest pain, dizziness, or edema. Refers she does drink more than 6 cups of coffee per day. Blood in the urine, no urinary symptoms. No family history of kidney disease. PAST MEDICAL HISTORY: PAST MEDICAL HISTORY Diagnosis Date NEGATIVE MEDICAL HISTORY PAST SURGICAL HISTORY Procedure Laterality Date DEBRIDEMENT OPEN WOUND 20 SQ CM/< 05/30/14 Debridement infected scalp cysts PAST SURGICAL HISTORY OF 1968? cyst removal from breast, ? side REM LESION NEC,HND,SCAL 3.1-4.0CM 09/20/14 Exc. 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 (Patient not taking: No sig reported) losartan-hydroCHLOROthiazide (HYZAAR) 50-12.5 mg per tablet Take 1 tablet by mouth once daily. COMPOUNDED PRESCRIPTION Additional supplements: Ecklo-Fm, Turmero, Immuno-Synbiotic, Natural D-Hist (Patient not taking: Reported on 03/23/2023) No current facility-administered medications for this visit. FAMILY HISTORY Problem Relation Age of Onset Stroke Sister Hypertension Brother Social History Tobacco Use Smoking status: Never Smokeless tobacco: Never Vaping Use Vaping Use: Never used Substance Use Topics Alcohol use: No Drug use: No REVIEW OF SYSTEMS GENERAL: No weight loss, malaise or fevers/chills HEENT: Negative for frequent or significant headaches, No changes in hearing or vision. NECK: Negative for lumps, goiter, pain and significant neck swelling RESPIRATORY: Negative for cough, hemoptysis, wheezing, dyspnea or shortness of breath CARDIOVASCULAR: Negative for chest pain, leg swelling, orthopnea, or palpitations GI: No nausea, vomiting, or diarrhea/constipation. No hematochezia/melena. No heartburn or reflux symptoms. : No history of dysuria, frequency or incontinence MUSCULOSKELETAL: Negative for joint pain or swelling. SKIN: Negative for lesions, rash, and itching ENDOCRINE: Negative for cold or heat intolerance, polyuria, polydipsia and goiter NEURO: No history of headaches, syncope, paralysis, seizures or tremors MOOD: Negative for depression, anxiety, or suicidal ideation. EXAM: BP 130/66 Pulse 88 Resp 16 Wt 62.1 kg (137 lb) SpO2 96% BMI 24.27 kg/m? PHYSICAL EXAM: General Appearance: Well appearing, alert, in no acute distress, well-hydrated, well nourished. Skin: Skin color, texture, turgor normal, no suspicious rashes or lesions. Head: Normocephalic, no masses, lesions, tenderness or abnormalities. Eyes: Anicteric sclera. Extraocular movements are intact. Lungs: Lungs clear to auscultation. No wheezing, rhonchi, rales. Heart: Positive findings: irregular rhythm. Notable paused beat. Abdomen: Normal abdominal exam, Abdomen soft, non-tender. Bowel sounds normal. No masses, organomegaly, Negative CVA tenderness. Extremities: No deformities, edema, skin discoloration, clubbing or cyanosis. Good capillary refill. Peripheral Pulses: Normal, Capillary refill <2secs, strong peripheral pulses, Pulses palpable. Neurologic: Gait normal. Sensation grossly intact. UA: + Trace Blood ASSESSMENT/PLAN: 1. Microscopic hematuria - ICD9: 599.72, ICD10: R31.29 (primary diagnosis) - URINALYSIS, WITH MICROSCOPIC - URINE CULTURE 2. Irregular heart rhythm - ICD9: 427.9, ICD10: I49.9 - EKG, showed NSR with PVC's. - Denied wanting further evaluation or testing at this time. - Patient requesting to decrease coffee intake and increase water. - Red flag symptoms given to patient, she verbalizes understanding when to seek emergency care. - May monitor heart rate at home. - ECG COMPLETE 3. Hypertension, essential - ICD9: 401.9, ICD10: I10 - Controlled - Continue current medications - Recommend home blood pressure monitoring, to bring results to next visit - Encouraged sodium restriction, DASH or Mediterranean diet - Recommend regular aerobic exercise - LOSARTAN 50 MG-HYDROCHLOROTHIAZIDE 12.5 MG TABLET Follow-up pending test results or sooner as needed. Discussed treatment plan and patient voices understanding. Patient's questions answered appro (more content not included)... [facility] 03-27-2023 Note HNO ID: [id number] Author: Kendra Briceno APRN.ZAINAB Service: ? Author Type: Nurse Practitioner Type: Progress Notes Filed: 03/27/2023 2:48 PM Note Text: This is a 77 year old female who presents today with: Patient presents with: Follow Up: Left ankle wound HISTORY OF PRESENT ILLNESS: Jesús June is a 77 year old female. Patient presents with: Follow Up: Left ankle wound In the office for wound follow up. Was started on Doxycycline for Staph infection to the left leg. Applying Bactroban ointment. Last checked on Thursday in office, much improved. Refers that wound is healing well. No fever or chills. Has a couple more days of antibioitcs. PAST MEDICAL HISTORY: PAST MEDICAL HISTORY Diagnosis Date NEGATIVE MEDICAL HISTORY PAST SURGICAL HISTORY Procedure Laterality Date DEBRIDEMENT OPEN WOUND 20 SQ CM/< 05/30/14 Debridement infected scalp cysts PAST SURGICAL HISTORY OF 1968? cyst removal from breast, ? side REM LESION NEC,HND,SCAL 3.1-4.0CM 09/20/14 Exc. 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 mupirocin (BACTROBAN) 2 % ointment Apply to affected area three times daily for 10 days. cephALEXin (KEFLEX) 500 mg capsule Take 1 capsule by mouth four times daily for 10 days. (Patient not taking: Reported on 03/23/2023) potassium chloride 20 mEq TbER Take 1 tablet by mouth daily with breakfast. (Patient not taking: No sig reported) losartan-hydroCHLOROthiazide (HYZAAR) 50-12.5 mg per tablet Take 1 tablet by mouth once daily. COMPOUNDED PRESCRIPTION Additional supplements: Ecklo-Fm, Turmero, Immuno-Synbiotic, Natural D-Hist (Patient not taking: Reported on 03/23/2023) No current facility-administered medications for this visit. FAMILY HISTORY Problem Relation Age of Onset Stroke Sister Hypertension Brother Social History Tobacco Use Smoking status: Never Smokeless tobacco: Never Vaping Use Vaping Use: Never used Substance Use Topics Alcohol use: No Drug use: No REVIEW OF SYSTEMS GENERAL: No weight loss, malaise or fevers/chills HEENT: Negative for frequent or significant headaches, No changes in hearing or vision. NECK: Negative for lumps, goiter, pain and significant neck swelling RESPIRATORY: Negative for cough, hemoptysis, wheezing, dyspnea or shortness of breath CARDIOVASCULAR: Negative for chest pain, leg swelling, orthopnea, or palpitations GI: No nausea, vomiting, or diarrhea/constipation. No hematochezia/melena. No heartburn or reflux symptoms. : No history of dysuria, frequency or incontinence MUSCULOSKELETAL: Negative for joint pain or swelling. SKIN: + Left leg wound ENDOCRINE: Negative for cold or heat intolerance, polyuria, polydipsia and goiter NEURO: No history of headaches, syncope, paralysis, seizures or tremors MOOD: Negative for depression, anxiety, or suicidal ideation. EXAM: BP 110/60 Pulse 74 Resp 16 Wt 63 kg (139 lb) SpO2 97% BMI 24.62 kg/m? PHYSICAL EXAM: General Appearance: Well appearing, alert, in no acute distress, well-hydrated, well nourished. Skin: + healing wound noted on the left lower leg, much improved. Mild erythema with scant discharge. No edema. Head: Normocephalic, no masses, lesions, tenderness or abnormalities. Eyes: Anicteric sclera. Pupils are equally round and reactive to light. Extraocular movements are intact. Extremities: No deformities, edema, skin discoloration, clubbing or cyanosis. Good capillary refill. Peripheral Pulses: Normal, Capillary refill <2secs, strong peripheral pulses, Pulses palpable. Neurologic: Gait normal. Sensation grossly intact. ASSESSMENT/PLAN: 1. Healing wound - ICD9: 959.9, ICD10: T14.90XD - Continue on doxycycline until gone. - Continue to keep wound clean and dry. May apply bactroban ointment until healed. - Watch for worsening symptoms. Follow up if no improvement. Discussed treatment plan and patient voices understanding. Patient's questions answered appropriately. Medications and potential side effects were discussed and patient voices understanding. Kendra Briceno APRN.ROTARY VENEER MACHINE OPERATOR This note was partially generated using [employer] recognition system. Note was reviewed for accuracy. There may be minor misspellings or grammar miscues with Dragon voice recognition. [facility] 03-27-2023 Instructions Kendra Briceno APRN.ZAINAB - 03/27/2023 2:26 PM EDT Continue to take the doxycycline until gone Continue to keep wound clean and dry. Apply bactroban ointment to wound, keep Band-Aid on wound as needed. Watch for worsening symptoms Follow up as needed. documented in this encounter [facility] 03-27-2023 History of Presen t illness Narrative This is a 77 year old female who presents today with: Patient presents with: Follow Up: Left ankle wound HISTORY OF PRESENT ILLNESS: Jesús June is a 77 year old female. Patient presents with: Follow Up: Left ankle wound In the office for wound follow up. Was started on Doxycycline for Staph infection to the left leg. Applying Bactroban ointment. Last checked on Thursday in office, much improved. Refers that wound is healing well. No fever or chills. Has a couple more days of antibioitcs. PAST MEDICAL HISTORY: PAST MEDICAL HISTORY Diagnosis Date NEGATIVE MEDICAL HISTORY PAST SURGICAL HISTORY Procedure Laterality Date DEBRIDEMENT OPEN WOUND 20 SQ CM/< 05/30/14 Debridement infected scalp cysts PAST SURGICAL HISTORY OF 1968? cyst removal from breast, ? side REM LESION NEC,HND,SCAL 3.1-4.0CM 09/20/14 Exc. 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 mupirocin (BACTROBAN) 2 % ointment Apply to affected area three times daily for 10 days. cephALEXin (KEFLEX) 500 mg capsule Take 1 capsule by mouth four times daily for 10 days. (Patient not taking: Reported on 03/23/2023) potassium chloride 20 mEq TbER Take 1 tablet by mouth daily with breakfast. (Patient not taking: No sig reported) losartan-hydroCHLOROthiazide (HYZAAR) 50-12.5 mg per tablet Take 1 tablet by mouth once daily. COMPOUNDED PRESCRIPTION Additional supplements: Ecklo-Fm, Turmero, Immuno-Synbiotic, Natural D-Hist (Patient not taking: Reported on 03/23/2023) No current facility-administered medications for this visit. FAMILY HISTORY Problem Relation Age of Onset Stroke Sister Hypertension Brother Social History Tobacco Use Smoking status: Never Smokeless tobacco: Never Vaping Use Vaping Use: Never used Substance Use Topics Alcohol use: No Drug use: No REVIEW OF SYSTEMS GENERAL: No weight loss, malaise or fevers/chills HEENT: Negative for frequent or significant headaches, No changes in hearing or vision. NECK: Negative for lumps, goiter, pain and significant neck swelling RESPIRATORY: Negative for cough, hemoptysis, wheezing, dyspnea or shortness of breath CARDIOVASCULAR: Negative for chest pain, leg swelling, orthopnea, or palpitations GI: No nausea, vomiting, or diarrhea/constipation. No hematochezia/melena. No heartburn or reflux symptoms. : No history of dysuria, frequency or incontinence MUSCULOSKELETAL: Negative for joint pain or swelling. SKIN: + Left leg wound ENDOCRINE: Negative for cold or heat intolerance, polyuria, polydipsia and goiter NEURO: No history of headaches, syncope, paralysis, seizures or tremors MOOD: Negative for depression, anxiety, or suicidal ideation. EXAM: BP 110/60 Pulse 74 Resp 16 Wt 63 kg (139 lb) SpO2 97% BMI 24.62 kg/m PHYSICAL EXAM: General Appearance: Well appearing, alert, in no acute distress, well-hydrated, well nourished. Skin: + healing wound noted on the left lower leg, much improved. Mild erythema with scant discharge. No edema. Head: Normocephalic, no masses, lesions, tenderness or abnormalities. Eyes: Anicteric sclera. Pupils are equally round and reactive to light. Extraocular movements are intact. Extremities: No deformities, edema, skin discoloration, clubbing or cyanosis. Good capillary refill. Peripheral Pulses: Normal, Capillary refill <2secs, strong peripheral pulses, Pulses palpable. Neurologic: Gait normal. Sensation grossly intact. ASSESSMENT/PLAN: 1. Healing wound - ICD9: 959.9, ICD10: T14.90XD - Continue on doxycycline until gone. - Continue to keep wound clean and dry. May apply bactroban ointment until healed. - Watch for worsening symptoms. Follow up if no improvement. Discussed treatment plan and patient voices understanding. Patient's questions answered appropriately. Medications and potential side effects were discussed and patient voices understanding. Kendra Briceno APRN.CNP This note was partially generated using [employer] voice recognition system. Note was reviewed for accuracy. There may be minor misspellings or grammar miscues with [employer] voice recognition. documented in this encounter [facility] 03-23-2023 Note HNO ID: [id number] Author: Kendra Briceno APRN.CNP Service: ? Author Type: Nurse Practitioner Type: Progress Notes Filed: 03/23/2023 8:46 AM Note Text: This is a 77 year old female who presents today with: Patient presents with: Follow Up: Wound on left ankle HISTORY OF PRESENT ILLNESS: Jesús June is a 77 year old female. Patient presents with: Follow Up: Wound on left ankle Here in the office for wound follow-up. Was started on Keflex initially, switched to doxycycline last Thursday due to culture results. Culture results showed positive for staph. Denies fevers or chills. Refers leg is looking much better. PAST MEDICAL HISTORY: PAST MEDICAL HISTORY Diagnosis Date NEGATIVE MEDICAL HISTORY PAST SURGICAL HISTORY Procedure Laterality Date DEBRIDEMENT OPEN WOUND 20 SQ CM/< 05/30/14 Debridement infected scalp cysts PAST SURGICAL HISTORY OF 1968? cyst removal from breast, ? side REM LESION NEC,HND,SCAL 3.1-4.0CM 09/20/14 Exc. 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 mupirocin (BACTROBAN) 2 % ointment Apply to affected area three times daily for 10 days. losartan-hydroCHLOROthiazide (HYZAAR) 50-12.5 mg per tablet Take 1 tablet by mouth once daily. cephALEXin (KEFLEX) 500 mg capsule Take 1 capsule by mouth four times daily for 10 days. (Patient not taking: Reported on 03/23/2023) potassium chloride 20 mEq TbER Take 1 tablet by mouth daily with breakfast. (Patient not taking: No sig reported) COMPOUNDED PRESCRIPTION Additional supplements: Ecklo-Fm, Turmero, Immuno-Synbiotic, Natural D-Hist (Patient not taking: Reported on 03/23/2023) No current facility-administered medications for this visit. FAMILY HISTORY Problem Relation Age of Onset Stroke Sister Hypertension Brother Social History Tobacco Use Smoking status: Never Smokeless tobacco: Never Vaping Use Vaping Use: Never used Substance Use Topics Alcohol use: No Drug use: No REVIEW OF SYSTEMS GENERAL: No weight loss, malaise or fevers/chills HEENT: Negative for frequent or significant headaches, No changes in hearing or vision. NECK: Negative for lumps, goiter, pain and significant neck swelling RESPIRATORY: Negative for cough, hemoptysis, wheezing, dyspnea or shortness of breath CARDIOVASCULAR: Negative for chest pain, leg swelling, orthopnea, or palpitations GI: No nausea, vomiting, or diarrhea/constipation. No hematochezia/melena. No heartburn or reflux symptoms. : No history of dysuria, frequency or incontinence MUSCULOSKELETAL: Negative for joint pain or swelling. SKIN: + Wound left lower leg ENDOCRINE: Negative for cold or heat intolerance, polyuria, polydipsia and goiter NEURO: No history of headaches, syncope, paralysis, seizures or tremors MOOD: Negative for depression, anxiety, or suicidal ideation. EXAM: BP 130/60 Pulse 70 Resp 16 Wt 63.7 kg (140 lb 6.4 oz) SpO2 96% BMI 24.87 kg/m? PHYSICAL EXAM: General Appearance: Well appearing, alert, in no acute distress, well-hydrated, well nourished. Skin: Skin color, texture, turgor normal, no suspicious rashes or lesions. See below Head: Normocephalic, no masses, lesions, tenderness or abnormalities. Eyes: Anicteric sclera. Extraocular movements are intact. Extremities: Normal except for Left lower leg wound- mild erythema, mild discharge, no pain or tenderness, improved since last visit. Neurologic: Gait normal. Reflexes normal and symmetric. Sensation grossly intact. ASSESSMENT/PLAN: 1. Non-healing wound of left lower extremity - ICD9: 894.1, ICD10: S81.802A - Continue doxycycline - Keep wound clean and dry. Continue to apply Bactroban ointment to wound. - Follow up on Thursday for recheck or cancel if wound continues to improve Discussed treatment plan and patient voices understanding. Patient's questions answered appropriately. Medications and potential side effects were discussed and patient voices understanding. Kendra Briceno APRN.ROTARY VENEER MACHINE OPERATOR This note was partially generated using 36Kr voice recognition system. Note was reviewed for accuracy. There may be minor misspellings or grammar miscues with 36Kr voice recognition. [facility] 03-23-2023 History of Presen t illness Narrative This is a 77 year old female who presents today with: Patient presents with: Follow Up: Wound on left ankle HISTORY OF PRESENT ILLNESS: Jesús June is a 77 year old female. Patient presents with: Follow Up: Wound on left ankle Here in the office for wound follow-up. Was started on Keflex initially, switched to doxycycline last Thursday due to culture results. Culture results showed positive for staph. Denies fevers or chills. Refers leg is looking much better. PAST MEDICAL HISTORY: PAST MEDICAL HISTORY Diagnosis Date NEGATIVE MEDICAL HISTORY PAST SURGICAL HISTORY Procedure Laterality Date DEBRIDEMENT OPEN WOUND 20 SQ CM/< 05/30/14 Debridement infected scalp cysts PAST SURGICAL HISTORY OF 1968? cyst removal from breast, ? side REM LESION NEC,HND,SCAL 3.1-4.0CM 09/20/14 Exc. 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 mupirocin (BACTROBAN) 2 % ointment Apply to affected area three times daily for 10 days. losartan-hydroCHLOROthiazide (HYZAAR) 50-12.5 mg per tablet Take 1 tablet by mouth once daily. cephALEXin (KEFLEX) 500 mg capsule Take 1 capsule by mouth four times daily for 10 days. (Patient not taking: Reported on 03/23/2023) potassium chloride 20 mEq TbER Take 1 tablet by mouth daily with breakfast. (Patient not taking: No sig reported) COMPOUNDED PRESCRIPTION Additional supplements: Ecklo-Fm, Turmero, Immuno-Synbiotic, Natural D-Hist (Patient not taking: Reported on 03/23/2023) No current facility-administered medications for this visit. FAMILY HISTORY Problem Relation Age of Onset Stroke Sister Hypertension Brother Social History Tobacco Use Smoking status: Never Smokeless tobacco: Never Vaping Use Vaping Use: Never used Substance Use Topics Alcohol use: No Drug use: No REVIEW OF SYSTEMS GENERAL: No weight loss, malaise or fevers/chills HEENT: Negative for frequent or significant headaches, No changes in hearing or vision. NECK: Negative for lumps, goiter, pain and significant neck swelling RESPIRATORY: Negative for cough, hemoptysis, wheezing, dyspnea or shortness of breath CARDIOVASCULAR: Negative for chest pain, leg swelling, orthopnea, or palpitations GI: No nausea, vomiting, or diarrhea/constipation. No hematochezia/melena. No heartburn or reflux symptoms. : No history of dysuria, frequency or incontinence MUSCULOSKELETAL: Negative for joint pain or swelling. SKIN: + Wound left lower leg ENDOCRINE: Negative for cold or heat intolerance, polyuria, polydipsia and goiter NEURO: No history of headaches, syncope, paralysis, seizures or tremors MOOD: Negative for depression, anxiety, or suicidal ideation. EXAM: BP 130/60 Pulse 70 Resp 16 Wt 63.7 kg (140 lb 6.4 oz) SpO2 96% BMI 24.87 kg/m PHYSICAL EXAM: General Appearance: Well appearing, alert, in no acute distress, well-hydrated, well nourished. Skin: Skin color, texture, turgor normal, no suspicious rashes or lesions. See below Head: Normocephalic, no masses, lesions, tenderness or abnormalities. Eyes: Anicteric sclera. Extraocular movements are intact. Extremities: Normal except for Left lower leg wound- mild erythema, mild discharge, no pain or tenderness, improved since last visit. Neurologic: Gait normal. Reflexes normal and symmetric. Sensation grossly intact. ASSESSMENT/PLAN: 1. Non-healing wound of left lower extremity - ICD9: 894.1, ICD10: S81.802A - Continue doxycycline - Keep wound clean and dry. Continue to apply Bactroban ointment to wound. - Follow up on Thursday for recheck or cancel if wound continues to improve Discussed treatment plan and patient voices understanding. Patient's questions answered appropriately. Medications and potential side effects were discussed and patient voices understanding. Kendra Briceno APRN.ZAINAB This note was partially generated using 36Kr voice recognition system. Note was reviewed for accuracy. There may be minor misspellings or grammar miscues with Fatboy Labson voice recognition. documented in this encounter [facility] 03-23-2023 Instructions Joana Shore - 03/23/2023 8:17 AM EDT Continue doxycycline Keep wound clean and dry Apply bactroban Follow up on Thursday- if needed documented in this encounter [facility] 03-20-2023 Miscellaneous Notes Pt calls back just to review results again d/t she could not remember is she was positive for staph infection. Reviewed result message again with pt and she verbalizes understanding. Also verified to pt that rx was sent to [facility] pharm. Sadie Lyons LPN Pt notified and voiced understanding. Maria C Meade Ma Can you please call the patient and let her know that I reviewed her wound culture results. Culture came back positive for staph. I need to change her antibiotic to cover for this. I have sent a prescription in for doxycycline, take this twice daily for the next 10 days. Please let me know if she has any questions. Thank you. Kendra Briceno APRN.ZAINAB The following approved medication requests have been transmitted electronically. Requested Prescriptions Signed Prescriptions Disp Refills doxycycline (VIBRA-TABS) 100 mg tablet 20 tablet 0 Sig: Take 1 tablet by mouth twice daily for 10 days. Authorizing Provider: KENDRA BRICENO APRN.CNP documented in this encounter [facility] 03-17-2023 Note HNO ID: [id number] Author: Kendra Briceno APRN.CNP Service: ? Author Type: Nurse Practitioner Type: Progress Notes Filed: 03/17/2023 11:01 AM Note Text: This is a 77 year old female who presents today with: Patient presents with: Follow Up: ER follow for left calf wound. HISTORY OF PRESENT ILLNESS: Jesús June is a 77 year old female. Patient presents with: Follow Up: ER follow for left calf wound. 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 Testing done: None Treatment given: None Current symptoms: Refers that wound will not heal. Still seeping fluid at times. Refers that pus comes out the wound since initial injury. No fever or chills. Initally concerned that she scrapped it on something outside which caused initial injury/bleed. No fever or chills. PAST MEDICAL HISTORY: PAST MEDICAL HISTORY Diagnosis Date NEGATIVE MEDICAL HISTORY PAST SURGICAL HISTORY Procedure Laterality Date DEBRIDEMENT OPEN WOUND 20 SQ CM/< 05/30/14 Debridement infected scalp cysts PAST SURGICAL HISTORY OF 1968? cyst removal from breast, ? side REM LESION NEC,HND,SCAL 3.1-4.0CM 09/20/14 Exc. 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 losartan-hydroCHLOROthiazide (HYZAAR) 50-12.5 mg per tablet Take 1 tablet by mouth once daily. COMPOUNDED PRESCRIPTION Additional supplements: Ecklo-Fm, Turmero, Immuno-Synbiotic, Natural D-Hist No current facility-administered medications for this visit. FAMILY HISTORY Problem Relation Age of Onset Stroke Sister Hypertension Brother Social History Tobacco Use Smoking status: Never Smokeless tobacco: Never Vaping Use Vaping Use: Never used Substance Use Topics Alcohol use: No Drug use: No REVIEW OF SYSTEMS GENERAL: No weight loss, malaise or fevers/chills HEENT: Negative for frequent or significant headaches, No changes in hearing or vision. NECK: Negative for lumps, goiter, pain and significant neck swelling RESPIRATORY: Negative for cough, hemoptysis, wheezing, dyspnea or shortness of breath CARDIOVASCULAR: Negative for chest pain, leg swelling, orthopnea, or palpitations GI: No nausea, vomiting, or diarrhea/constipation. No hematochezia/melena. No heartburn or reflux symptoms. : No history of dysuria, frequency or incontinence MUSCULOSKELETAL: Negative for joint pain or swelling. SKIN: + Non-healing wound left lower leg ENDOCRINE: Negative for cold or heat intolerance, polyuria, polydipsia and goiter NEURO: No history of headaches, syncope, paralysis, seizures or tremors MOOD: Negative for depression, anxiety, or suicidal ideation. EXAM: BP 142/66 Pulse 62 Resp 16 Wt 63 kg (139 lb) SpO2 97% BMI 24.62 kg/m? PHYSICAL EXAM: General Appearance: Well appearing, alert, in no acute distress, well-hydrated, well nourished. Skin: +Small wound, open, and mild seeping on the left lower leg. Moderate erythema, moist center, yellow discharge. Wound culture collected. Head: Normocephalic, no masses, lesions, tenderness or abnormalities. Eyes: Anicteric sclera. Extraocular movements are intact. Lungs: Lungs clear to auscultation. No wheezing, rhonchi, rales. Heart: RRR without murmur, gallop, or rubs. No ectopy. Extremities: No deformities, edema, skin discoloration, clubbing or cyanosis. Good capillary refill. Peripheral Pulses: Normal, Capillary refill <2secs, strong peripheral pulses, Pulses palpable. Neurologic: Gait normal. Sensation grossly intact. ASSESSMENT/PLAN: 1. Non-healing wound of left lower extremity - ICD9: 894.1, ICD10: S81.802A - Wound culture collected. - Start Keflex, take with food. - Keep wound clean and dry. Instructed to keep covered if working outside. Apply Bactroban ointment. - Red flag symptoms given to patient, she verbalizes understanding when to seek care. - MUPIROCIN 2 % TOPICAL OINTMENT - CEPHALEXIN 500 MG CAPSULE - ABSCESS AND WOUND CULTURE WITH GRAM STAIN Follow up next Thursday or sooner as needed. Discussed treatment plan and patient voices understanding. Patient's questions answered appropriately. Medications and potential side effects were discussed and patient voices understanding. Kendra Briceno APRN.ZAINAB This note was partially generated using 36Kr voice recognition system. Note was reviewed for accuracy. There may be minor misspellings or grammar miscues with 36Kr voice recognition. [facility] 03-04-2023 Miscellaneous Notes Pt returns call gave information provided. Pt voices understanding. Called and left message on patients voicemail to return call to the office and ask to speak with a triage nurse. Blanca Marx Ma ----- Message from Augustin Benedict APRN.CNP sent at 03/04/2023 8:36 AM EDT ----- Please let the patient know that her potassium is back to an acceptable level. I would just encourage consistent intake of potassium containing foods such as potatoes, green leafy vegetables to maintain. Augustin Benedict CNP documented in this encounter [facility] 02-13-2023 Note HNO ID: [id number] Author: Augustin Benedict APRN.ZAINAB Service: ? Author Type: Nurse Practitioner Type: Progress Notes Filed: 02/13/2023 9:12 AM Note Text: Chief Complaint Patient presents with: F/U 6 Month HPI Jesús June is a 77 year old female who presents here today for Chronic Medical Conditions. follow up for HTN. Here for blood pressure follow-up. Taking prescribed antihypertensive daily. No side effects. Due for blood work in relation to this medication. Does check blood pressure at home. It is usually normal. At this time, the patient denies any chest pain, shortness of breath, edema, palpitations, dizziness, syncope, headache. Depression Screening 01/31/2019 12/16/2021 09/08/2022 02/13/2023 PHQ-2 Score 0 0 0 0 PHQ-9 Score - 0 - - Depression screening tool completed and reviewed. Based on score and interview, patient is not at risk for depression. Screening tool discussed with patient, and I recommended no further intervention at this time. Past medical history, appointments, medications, allergies reviewed. EXAM: BP 118/74 Pulse (!) 51 Temp 36.3 ?C (97.3 ?F) (Left Tympanic) Resp 16 Wt 63.4 kg (139 lb 12.8 oz) SpO2 98% BMI 24.76 kg/m? General Appearance: Well appearing, alert, in no acute distress, well-hydrated, well nourished.. Lungs: Lungs clear to auscultation. No wheezing, rhonchi, rales.. Heart: RRR without murmur, gallop, or rubs. No ectopy ASSESSMENT/PLAN: 1. Hypertension, essential - ICD9: 401.9, ICD10: I10 - good control - Continue current medication(s) - Check BMP - Recommended regular aerobic exercise. - Recommend home blood pressure monitoring, to bring results in on next visit - Goal of BP <130/80 - LOSARTAN 50 MG-HYDROCHLOROTHIAZIDE 12.5 MG TABLET Augustin Benedict APRN.CNP RTO in 12 months, sooner if needed. This note was partly generated using Fatboy Labson voice recognition dictation and may contain some misspelled or inaccurate words missed on review. [facility] 02-13-2023 Instructions Augustin Benedict APRN.CNP - 02/13/2023 9:04 AM EDT Get blood work completed. Continue current medication Follow up in 12 months, sooner if needed. Augustin Benedict APRN.CNP documented in this encounter [facility] 02-13-2023 History of Presen t illness Narrative Chief Complaint Patient presents with: F/U 6 Month HPI Jesús June is a 77 year old female who presents here today for Chronic Medical Conditions. follow up for HTN. Here for blood pressure follow-up. Taking prescribed antihypertensive daily. No side effects. Due for blood work in relation to this medication. Does check blood pressure at home. It is usually normal. At this time, the patient denies any chest pain, shortness of breath, edema, palpitations, dizziness, syncope, headache. Depression Screening 01/31/2019 12/16/2021 09/08/2022 02/13/2023 PHQ-2 Score 0 0 0 0 PHQ-9 Score - 0 - - Depression screening tool completed and reviewed. Based on score and interview, patient is not at risk for depression. Screening tool discussed with patient, and I recommended no further intervention at this time. Past medical history, appointments, medications, allergies reviewed. EXAM: BP 118/74 Pulse (!) 51 Temp 36.3 C (97.3 F) (Left Tympanic) Resp 16 Wt 63.4 kg (139 lb 12.8 oz) SpO2 98% BMI 24.76 kg/m General Appearance: Well appearing, alert, in no acute distress, well-hydrated, well nourished.. Lungs: Lungs clear to auscultation. No wheezing, rhonchi, rales.. Heart: RRR without murmur, gallop, or rubs. No ectopy ASSESSMENT/PLAN: 1. Hypertension, essential - ICD9: 401.9, ICD10: I10 - good control - Continue current medication(s) - Check BMP - Recommended regular aerobic exercise. - Recommend home blood pressure monitoring, to bring results in on next visit - Goal of BP <130/80 - LOSARTAN 50 MG-HYDROCHLOROTHIAZIDE 12.5 MG TABLET Augustin Benedict APRN.CNP RTO in 12 months, sooner if needed. This note was partly generated using 36Kr voice recognition dictation and may contain some misspelled or inaccurate words missed on review. documented in this encounter [facility] 07-15-2022 Miscellaneous Notes Please let the patient know that we have sent. The following approved medication requests have been transmitted electronically. Requested Prescriptions Signed Prescriptions Disp Refills losartan (COZAAR) 50 mg tablet 90 tablet 1 Sig: Take 1 tablet by mouth once daily Authorizing Provider: AUGUSTIN BENEDICT hydroCHLOROthiazide (HYDRODIURIL, ESIDRIX) 12.5 mg capsule 90 capsule 1 Sig: Take 1 capsule by mouth once daily Authorizing Provider: AUGUSTIN BENEDICT APRN.CNP Contacted [facility] in [place] to verify if patient had refills available of pended medications. Pharmacy states patient has not filled the scripts since the script issue date of 12/16/21 and scripts are no longer valid after 6 months. Patient requesting new scripts as pended. Requesting them be sent to [facility]. Please call patient with update at [phone]. Thank you. Last office visit: 12/16/21 F/u scheduled: none Maria C Meade Ma documented in this encounter [facility] documented as of this encounter (statuses as of 07/15/2022) [facility]08-26-2014 History of Past illness Narrative* Problem Noted Date Resolved Date Loyda 05/30/2014 12/16/2021 documented as of this encounter (statuses as of 02/13/2023) [facility] History of Past illness Narrative* Problem Noted Date Resolved Date Loyda 05/30/2014 12/16/2021 documented as of this encounter (statuses as of 03/04/2023) [facility] History of Past illness Narrative* Problem Noted Date Resolved Date Loyda 05/30/2014 12/16/2021 documented as of this encounter (statuses as of 03/20/2023) [facility] History of Past illness Narrative* Problem Noted Date Resolved Date Loyda 05/30/2014 12/16/2021 documented as of this encounter (statuses as of 03/23/2023) [facility] History of Past illness Narrative* Problem Noted Date Resolved Date Loyda 05/30/2014 12/16/2021 documented as of this encounter (statuses as of 03/27/2023) [facility] note* Diagnosis Hypertension, essential Unspecified essential hypertension documented in this encounter [facility] note* Diagnosis Hypertension, essential- Primary Unspecified essential hypertension [facility] Diagnosis Non-healing wound of left lower extremity- Primary [facility] Diagnosis Non-healing wound of left lower extremity- Primary [facility] Diagnosis Healing wound- Primary documented in this encounter [facility] Summary Purpose Family History No Family History Records Found Advance Directives No Advanced Directives Records Found Additional Source Comments Source Comments (unrecognize d section and content) In the event this informatio n is protected by the Federal Confidentiality of Alcohol and Drug Abuse Patient Records regulations: The Federal rules restrict any use of the information to criminally investigate or prosecute any alcohol or drug abuse patient.[facility] event this information is protected by the Federal Confidentiality of Alcohol and Drug Abuse Patient Records regulations: The Federal rules restrict any use of the information to criminally investigate or prosecute any alcohol or drug abuse patient.[facility] event this information is protected by the Federal Confidentiality of Alcohol and Drug Abuse Patient Records regulations: The Federal rules restrict any use of the information to criminally investigate or prosecute any alcohol or drug abuse patient.[facility] the event this information is protected by the Federal Confidentiality of Alcohol and Drug Abuse Patient Records regulations: The Federal rules restrict any use of the information to criminally investigate or prosecute any alcohol or drug abuse patient.[facility] event this information is protected by the Federal Confidentiality of Alcohol and Drug Abuse Patient Records regulations: The Federal rules restrict any use of the information to criminally investigate or prosecute any alcohol or drug abuse patient.[facility] event this information is protected by the Federal Confidentiality of Alcohol and Drug Abuse Patient Records regulations: The Federal rules restrict any use of the information to criminally investigate or prosecute any alcohol or drug abuse patient.[facility] Reason for Visit (unrecogniz ed section and content) Reason Comments F/U 6 Month Reason Comments Results Reason Comments Results Orders Wound culture Reason Comments Follow Up Wound on left ankle Reason Comments Follow Up Left ankle wound Care Teams (unrecognized sec tion and content) [employer] Operator Relationship Specialty Start Date End Date Berenice Zamora MD [address] [place] [address] PCP - General Family Medicine 12/16/21 [employer] Operator Relationship Specialty Start Date End Date Berenice Zamora MD [address] [place] [address] PCP - General Family Medicine 12/16/21 [employer] Press Operator Relationship Specialty Start Date End Date Berenice Zamora MD [address] [place] [address] PCP - General Family Medicine 12/16/21 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 This clinical summary was aggregated from multiple sources. Caution should be exercised in using it in the provision of clinical care. This summary normalizes information from multiple sources, and as a consequence, information in this document may materially change the coding, format and clinical context of patient data. In addition, data may be omitted in some cases. CLINICAL DECISIONS SHOULD BE BASED ON THE PRIMARY CLINICAL RECORDS. [facility]. provides no warranty or guarantee of the accuracy or completeness of information in this document.
== END | disposition home or self-care (01) ==
LOC: LAB 09:44
PROVIDERS: PCP Family Medicine; Referring Provider Internal Medicine Cardiovascular Disease; Visit Provider Internal Medicine Cardiovascular Disease
DX: R94.31 Abnormal electrocardiogram [ECG] [EKG] (principal); I49.3 Ventricular premature depolarization; R00.2 Palpitations; I10 Essential (primary) hypertension
CPT/HCPCS: 36415; 80053; 83735

== ENCOUNTER → 2023-11-09 | Outpatient (CLI) | payer MEDICARE, SELFPAY ==
[2023-11-09 13:04] LABS: Anion Gap 8 (5-15); BUN 13 mg/dL (7-18); BUN/Creat Ratio 16.9 RATIO (10-20); Calcium,Total 9.2 mg/dL (8.5-10.1); Chloride 108 mmol/L (98-107); Creatinine, Serum 0.77 mg/dL (0.55-1.02); EST Glomerular Filtration Rate 77 mL/min (>60); Est Glom Filt Rate - Afr Amer 94 mL/min (>60); Glucose 94 mg/dL (74-106); Potassium 3.8 mmol/L (3.5-5.1); Sodium Level 141 mmol/L (136-145)
== END | disposition home or self-care (01) ==
PROVIDERS: PCP Family Medicine; Referring Provider Physician Assistant Medical; Visit Provider Physician Assistant Medical
DX: E87.6 Hypokalemia (principal)
CPT/HCPCS: 36415; 80048

== ENCOUNTER → 2023-12-15 | Outpatient (CLI) | payer MEDICARE, SELFPAY ==
--- NOTE | 2023-12-15 07:06 | ECHOD_ITS ---
Reason For Study: ABNORMAL EKG Procedure This was a 2D Doppler, Color Flow transthoracic echocardiogram. Exam performed in department. Left Ventricle Normal size and thickness. The left ventricular ejection fraction is 60 %. Diastolic function is indeterminate. Right Ventricle Normal right ventricle. Atria The left and right atria are normal. Mitral Valve Mild (1+) mitral valve insufficiency. Tricuspid Valve Moderate (2+) tricuspid valve insufficiency. Right ventricular systolic pressure estimated to be 45 mmHg. Aortic Valve Aortic sclerosis, no stenosis. Trivial aortic valve insufficiency. Pulmonic Valve The pulmonic valve is not well visualized. Mild-Moderate (1-2+) pulmonic valve insufficiency. Great Vessels Normal sized aortic root. Pericardium/Pleural No pericardial effusion. MMode/2D Measurements & Calculations LVIDd: 5.3 cm IVSd: 0.96 cm Ao root diam: 3.0 cm LVIDs: 3.3 cm LVPWd: 1.0 cm RVDd: 3.3 cm FS: 37.4 % LAV(MOD-bp): 41.7 ml LVAd ap4: 26.3 cm2 LVAd ap2: 23.7 cm2 LAV(MOD-bp) Indexed: 25.1 ml/m2 LVLd ap4: 6.9 cm LVLd ap2: 6.5 cm LAV(MOD-sp2): 41.8 ml EDV(MOD-sp4): 84.9 ml EDV(MOD-sp2): 73.3 ml LAV(MOD-sp4): 39.0 ml EDV(sp4-el): 85.4 ml EDV(sp2-el): 73.7 ml LVAs ap4: 16.3 cm2 LVAs ap2: 15.0 cm2 LVLs ap4: 5.5 cm LVLs ap2: 6.6 cm ESV(MOD-sp4): 39.5 ml ESV(MOD-sp2): 29.1 ml ESV(sp4-el): 40.9 ml ESV(sp2-el): 29.2 ml EF(MOD-sp4): 53.4 % EF(MOD-sp2): 60.4 % EF(sp4-el): 52.1 % SV(MOD-sp4): 45.3 ml SV(MOD-sp2): 44.3 ml SV(sp4-el): 44.5 ml TAPSE: 2.7 cm LA A4 area: 15.5 cm2 RA A4 area: 14.5 cm2 Time Measurements MV dec time: 0.15 sec Doppler Measurements & Calculations MV E max masoud: 100.2 cm/sec Lat Peak E' Masoud: 5.4 cm/sec Med Peak E' Masoud: 6.9 cm/sec MV A max masoud: 104.2 cm/sec E/E' lat: 18.5 E/E' med: 14.4 MV E/A: 0.96 MV V2 max: 112.7 cm/sec MV P1/2t max masoud: 100.5 cm/sec Ao V2 max: 131.1 cm/sec MV max P.1 mmHg MV P1/2t: 52.0 msec Ao max P.9 mmHg MV V2 mean: 56.3 cm/sec MV dec slope: 566.0 cm/sec2 Ao V2 mean: 92.9 cm/sec MV mean P.6 mmHg Ao mean P.9 mmHg MV V2 VTI: 37.5 cm MVA(P1/2t): 4.2 cm2 Ao V2 VTI: 32.4 cm AV (velocity ratio): 0.77 LV V1 max: 103.5 cm/sec PA V2 max: 102.3 cm/sec PI end-d masoud: 72.4 cm/sec LV V1 max P.3 mmHg PA V2 mean: 68.4 cm/sec LV V1 mean P.4 mmHg LV V1 mean: 71.3 cm/sec LV V1 VTI: 24.8 cm TR max masoud: 276.6 cm/sec TR max P.6 mmHg ECHO/Echo Complete Interpretation Summary The left ventricular ejection fraction is 60 %. Mild (1+) mitral valve insufficiency. Moderate (2+) tricuspid valve insufficiency. Right ventricular systolic pressure estimated to be 45 mmHg. Aortic sclerosis, no stenosis. Mild-Moderate (1-2+) pulmonic valve insufficiency. Ordering Physician: Karen Pennington Referring Physician: Praful Freitas Performed By: Bekah Young, DANILO, RVT
--- OUTSIDE RECORDS SUMMARY | 2023-12-15 07:06 | XMS RPT_ITS | CCD ---
Author Name Unknown Address [address] [facility] [address] [place] [address] Organization [facility] Care Team Providers Care Rig Operator Name Role Phone Berenice Zamora MD [...] Lisinopril; Translations: [LISINOPRIL] Drug Allergy 05-27-[address] [facility] Medications Current Medications Medication Drug Class(es) Dates [...] 63.05 kg Kendra Briceno APRN.CNP Work Phone: [facility] 03-27-2023 14:17-0400 Diastolic blood pressure 60 mm[Hg] Kendra Briceno APRN.SHIP UNLOADER Work Phone: [facility] 03-27-2023 14:17-0400 Heart rate 74 /min Kendra Briceno APRN.CNP Work Phone: [facility] 03-27-2023 14:17-0400 Respiratory rate 16 /min Kendra Briceno APRN.CNP Work Phone: [facility] 03-27-2023 14:17-0400 SaO2% (BldA) [Mass fraction] 97 % Kendra Briceno APRN.CNP Work Phone: [facility] 03-27-2023 14:17-0400 Systolic blood pressure 110 mm[Hg] Kendra Tannhof DURALUMIN MECHANIC.SHIP UNLOADER Work Phone: [facility] 03-23-2023 08:03-0400 Body weight 63.69 kg Kendramiranda Donatohof DURALUMIN MECHANIC.SHIP UNLOADER Work Phone: [facility] 03-23-2023 08:03-0400 Diastolic blood pressure 60 mm[Hg] Kendra Tannhof DURALUMIN MECHANIC.SHIP UNLOADER Work Phone: [facility] 03-23-2023 08:03-0400 Heart rate 70 /min Kendra Tannhof DURALUMIN MECHANIC.SHIP UNLOADER Work Phone: [facility] 03-23-2023 08:03-0400 Respiratory rate 16 /min Kendra Tannhof DURALUMIN MECHANIC.SHIP UNLOADER Work Phone: [facility] 03-23-2023 08:03-0400 SaO2% (BldA) [Mass fraction] 96 % Kendra Tannhof DURALUMIN MECHANIC.SHIP UNLOADER Work Phone: [facility] 03-23-2023 08:03-0400 Systolic blood pressure 130 mm[Hg] Kendra Tannhof DURALUMIN MECHANIC.SHIP UNLOADER Work Phone: [facility] 02-13-2023 09:01-0400 Body temperature 97.3 [degF] Augustin Jak DURALUMIN MECHANIC.SHIP UNLOADER Work Phone: [facility] 02-13-2023 09:01-0400 Body weight 63.41 kg Augustin Jak DURALUMIN MECHANIC.SHIP UNLOADER Work Phone: [facility] 02-13-2023 09:01-0400 Diastolic blood pressure 74 mm[Hg] Augustin Jak DURALUMIN MECHANIC.SHIP UNLOADER Work Phone: [facility] 02-13-2023 09:01-0400 Heart rate 51 /min Augustin Jak DURALUMIN MECHANIC.SHIP UNLOADER Work Phone: [facility] 02-13-2023 09:01-0400 Respiratory rate 16 /min Augustin Jak DURALUMIN MECHANIC.SHIP UNLOADER Work Phone: [facility] 02-13-2023 09:01-0400 SaO2% (BldA) [Mass fraction] 98 % Augustin Benedict APRN.CNP Work Phone: [facility] 02-13-2023 09:01-0400 Systolic blood pressure 118 mm[Hg] Augustin Benedict APRN.CNP Work Phone: [facility] Encounters Encounter Date Encounter Type Care Provider Facility Start: 10-06-2023 End: 10-07-2023 ambulatory [facility] Facility:[facility] Start: 03-27-2023 End: 03-28-2023 ambulatory [facility] Facility:[facility] Start: 03-27-2023 End: 03-27-2023 Patient encounter procedure Kendra Briceno APRN.CNP Work Phone: [facility] [place] Plan of Treatment Date Care Activity Detail Author Start: 02-13-2026 DIABETES SCREEN DIABETES SCREEN [facility] Start: 12-16-2024 DIABETES SCREEN DIABETES SCREEN [facility] Start: 03-27-2024 ANNUAL PCP TEAM BDR LETICIA DISEASE VISIT ANNUAL PCP TEAM CHRONIC DISEASE VISIT [facility] Start: 03-27-2024 BP CONTROLLED (<130/80) BP CONTROLLE D (<130/80) [facility] Start: 03-23-2024 ANNUAL PCP TEAM BDR LETICIA DISEASE VISIT ANNUAL PCP TEAM CHRONIC DISEASE VISIT [facility] Start: 03-17-2024 ANNUAL PCP TEAM BDR LETICIA DISEASE VISIT ANNUAL PCP TEAM CHRONIC DISEASE VISIT [facility] Start: 02-14-2024 ANNUAL PCP TEAM BDR LETICIA DISEASE VISIT ANNUAL PCP TEAM CHRONIC DISEASE VISIT [facility] Start: 02-14-2024 BP CONTROLLED (<130/80) BP CONTROLLE D (<130/80) [facility] Start: 09-08-2023 BONE DENSITY BONE DENSITY [facility] Immunizations Immunization Date Immunization Notes Care Provider Kong sparrow 11-08-2014 tetanus and diphther ia toxoids, adsorbed, preservative free, for adult use (5 Lf of tetanus toxoid and 2 Lf of diphtheria toxoid) Duc Patel APRN.SHIP UNLOADER, DNP Work Phone: [facility] Work Phone: Payers Date Payer Category Payer Medicare [id number] 2022 Unknown ANTHEM BLUE CROS S AND BLUE SHIELD ANTHEM MEDIBLUE HMO [id number] 2022-Present [phone] [address] [place] [address] HMO [id number] 2021 Medicare HUMANA MEDICARE HUMANA MEDICARE PPO [id number] 2021-Present [phone] [address] [address] [place] [address] PPO [id number] Social History Date Type Detail Facility Start: 09-15-2017 End: 09-08-2022 Tobacco smoking status NHIS Never smoked tobacco [facility] Start: 09-15-2017 End: 09-08-2022 Tobacco use and exposure Smokeless tobacco non-user [facility] Start: 12-16-2021 End: 03-27-2023 Alcohol intake Current non-drinker of alcohol (finding) [facility] Start: 1945 Sex Assigned At Not on file C [facility] Clinical Notes 05-30-2014 to 10-06-2023 Patient InstructionsKendra Briceno APRN.CNP - 03/27/2023 2:00 PM Valentine Briceno APRN.CNP - 03/23/2023 8:20 AM EDTPatient InstructionsPatient Instructions Note Date & Type Note Facility 10-06-2023 Note HNO ID: [id number] Author: Kendra Briceno APRN.CNP Service: ? Author [...] questions answered appro (more content not included)... [facility] 03-27-2023 Note HNO ID: [id number] Author: Kendra Briceno APRN.ZAINAB Service: ? Author [...] discussed and patient voices understanding. Kendra Briceno APRN.SHIP UNLOADER This note was partially generated using betaworks recognition system. Note was reviewed for accuracy. There may be minor misspellings or grammar miscues with Dragon voice recognition. [facility] 03-27-2023 Instructions Kendra Briceno APRN.ZAINAB - 03/27/2023 2:26 PM EDT Continue to take the doxycycline until gone Continue to keep wound clean and dry. Apply bactroban ointment to wound, keep Band-Aid on wound as needed. Watch for worsening symptoms Follow up as needed. documented in this encounter [facility] 03-27-2023 History of Presen t illness Narrative [...] APRN.CNP This note was partially generated using Evermind voice recognition system. Note was reviewed for accuracy. There may be minor misspellings or grammar miscues with Evermind voice recognition. documented in this encounter [facility] 03-23-2023 Note HNO ID: [id number] Author: Kendra Briceno APRN.CNP Service: ? Author [...] discussed and patient voices understanding. Kendra Briceno APRN.SHIP UNLOADER This note was partially generated using Evermind voice recognition system. Note was reviewed for accuracy. There may be minor misspellings or grammar miscues with Evermind voice recognition. [facility] 03-23-2023 History of Presen t illness Narrative [...] effects were discussed and patient voices understanding. Kednra Briceno APRN.ZAINAB This note was partially generated using Evermind voice recognition system. Note was reviewed for accuracy. There may be minor misspellings or grammar miscues with [employer] voice recognition. documented in this encounter [facility] 03-23-2023 Instructions Joana Shore - 03/23/2023 8:17 AM EDT Continue doxycycline Keep wound clean and dry Apply bactroban Follow up on Thursday- if needed documented in this encounter [facility] 03-20-2023 Miscellaneous Notes Pt calls back just to review results again d/t she could not remember is she was positive for staph infection. Reviewed result message again with pt and she verbalizes understanding. Also verified to pt that rx was sent to [facility] pharm. Sadie Lyons LPN Pt notified and [...] KENDRA BRICENO APRN.CNP documented in this encounter [facility] 03-17-2023 Note HNO ID: [id number] Author: Kendra Briceno APRN.CNP Service: ? Author [...] Reason for visit: Bleeding leg Which facility: [facility] ER Date of visit: 01/30/2023 Diagnosis: Hemorrhage [...] APRN.ZAINAB This note was partially generated using Evermind voice recognition system. Note was reviewed for accuracy. There may be minor misspellings or grammar miscues with Ever[employer] voice recognition. [facility] 03-04-2023 Miscellaneous Notes Pt returns call gave [...] Augustin Benedict CNP documented in this encounter [facility] 02-13-2023 Note HNO ID: [id number] Author: Augustin Benedict APRN.ZAINAB Service: ? Author [...] needed. This note was partly generated using [employer] voice recognition dictation and may contain some misspelled or inaccurate words missed on review. [facility] 02-13-2023 Instructions Augustin Benedict APRN.CNP - 02/13/2023 9:04 AM EDT Get blood work completed. Continue current medication Follow up in 12 months, sooner if needed. Augustin Benedict APRN.CNP documented in this encounter [facility] 02-13-2023 History of Presen t illness Narrative [...] needed. This note was partly generated using Evermind voice recognition dictation and may contain some misspelled or inaccurate words missed on review. documented in this encounter [facility] 07-15-2022 Miscellaneous Notes Please let the patient [...] daily Authorizing Provider: AUGUSTIN BENEDICT APRN.CNP Contacted [facility] in [place] to verify if patient had refills available of pended medications. Pharmacy states patient has not filled the scripts since the script issue date of 12/16/21 and scripts are no longer valid after 6 months. Patient requesting new scripts as pended. Requesting them be sent to [facility]. Please call patient with update at [phone]. Thank you. Last office visit: 12/16/21 F/u scheduled: none Maria C Meade Ma documented in this encounter [facility] documented as of this encounter (statuses as of 07/15/2022) [facility] History of Past illness Narrative* Problem Noted Date Resolved Date Loyda 05/30/2014 12/16/2021 documented as of this encounter (statuses as of 02/13/2023) [facility] History of Past illness Narrative* Problem Noted Date Resolved Date Loyda 05/30/2014 12/16/2021 documented as of this encounter (statuses as of 03/04/2023) [facility] History of Past illness Narrative* Problem Noted Date Resolved Date Loyda 05/30/2014 12/16/2021 documented as of this encounter (statuses as of 03/20/2023) [facility] History of Past illness Narrative* Problem Noted Date Resolved Date Lodya 05/30/2014 12/16/2021 documented as of this encounter (statuses as of 03/23/2023) [facility] History of Past illness Narrative* Problem Noted Date Resolved Date Loyda 05/30/2014 12/16/2021 documented as of this encounter (statuses as of 03/27/2023) [facility] note* Diagnosis Hypertension, essential Unspecified essential hypertension documented in this encounter [facility] note* Diagnosis Hypertension, essential- Primary Unspecified essential hypertension [facility] Diagnosis Non-healing wound of left lower extremity- Primary [facility] Diagnosis Non-healing wound of left lower extremity- Primary [facility] [place] Diagnosis Healing wound- Primary documented in this encounter [facility] Summary Purpose Family History No Family History [...] or prosecute any alcohol or drug abuse patient.[facility] the event this information is protected by the Federal Confidentiality of Alcohol and Drug Abuse Patient Records regulations: The Federal rules restrict any use of the information to criminally investigate or prosecute any alcohol or drug abuse patient.[facility] the event this information is protected by the Federal Confidentiality of Alcohol and Drug Abuse Patient Records regulations: The Federal rules restrict any use of the information to criminally investigate or prosecute any alcohol or drug abuse patient.[facility] the event this information is protected by the Federal Confidentiality of Alcohol and Drug Abuse Patient Records regulations: The Federal rules restrict any use of the information to criminally investigate or prosecute any alcohol or drug abuse patient.[facility] the event this information is protected by the Federal Confidentiality of Alcohol and Drug Abuse Patient Records regulations: The Federal rules restrict any use of the information to criminally investigate or prosecute any alcohol or drug abuse patient.[facility] the event this information is protected by the Federal Confidentiality of Alcohol and Drug Abuse Patient Records regulations: The Federal rules restrict any use of the information to criminally investigate or prosecute any alcohol or drug abuse patient.[facility] Reason for Visit (unrecogniz ed section and content) Reason Comments F/U 6 Month Reason Comments Results Reason Comments Results Orders Wound culture Reason Comments Follow Up Wound on left ankle Reason Comments Follow Up Left ankle wound Care Teams (unrecognized sec tion and content) Rig Operator Relationship Specialty Start Date End Date Berenice Zamora MD [address] [place] [address] PCP - General Family Medicine 12/16/21 Rig Operator Relationship Specialty Start Date End Date Berenice Zamora MD [address] [place] [address] PCP - General Family Medicine 12/16/21 Rig Operator Relationship Specialty Start Date End Date Berenice Zamora MD [address] [place] [address] PCP - General Family Medicine 12/16/21 Rig Operator Relationship Specialty Start Date End Date Berenice Zamora MD [address] [place] [address] PCP - General Family Medicine 12/16/21 Rig Operator Relationship Specialty Start Date End Date Berenice Zamora MD [address] [place] [address] PCP - General Family Medicine 12/16/21 INFORMATION [...] BE BASED ON THE PRIMARY CLINICAL RECORDS. [facility]. provides no warranty or guarantee of the accuracy or completeness of information in this document.
== END | disposition home or self-care (01) ==
LOC: CVS 07:04
PROVIDERS: PCP Family Medicine; Referring Provider Internal Medicine Cardiovascular Disease; Visit Provider Internal Medicine Cardiovascular Disease
DX: R94.31 Abnormal electrocardiogram [ECG] [EKG] (principal); R00.2 Palpitations; I49.3 Ventricular premature depolarization; I10 Essential (primary) hypertension
CPT/HCPCS: 93225; 93226; 93306

== ENCOUNTER → 2023-12-17 | Outpatient (CLI) | payer MEDICARE, SELFPAY ==
--- NOTE | 2023-12-17 13:26 | STE_ITS ---
Reason For Study: ABN EKG, PALPS Stress Results Protocol: Reji Protocol Maximum Predicted HR: 142 bpm Target HR: 121 bpm % Maximum Predicted HR: 106 % DurationHeart Rate Stage (mm:ss) (bpm) BP Comment BASELINE 64 148/72 STAGE 1 3:00 121 154/70 STAGE 2 1:00 151 / LEGS TIRED, NO CHEST PAIN RECOVERY 75 134/70 Stress Duration: 4:00 mm:ss Maximum Stress HR: 151 bpm Baseline Echocardiogram Findings Stress Echo Wall motion Data Resting WM Intermediate WM Stress WM Resting Wall Motion Wall Motion Stress No regional wall motion Inferior hypokinesis poststress. abnormalities noted. EKG Data Sinus rhythm with occasional PVC. Frequent PVCs including a 4 beat run of nonsustained VT. ECHO/Stress Test Echo w/o Contrast Interpretation Summary Occasional PVC on ECG at rest, frequent PVCs with stress including a 4 beat run of nonsustained VT. No diagnostic ischemic changes on stress ECG. No complaints of chest pain. Poststress echo images show inferior wall hypokinesis suggestive of inferior is chemia. Positive stress echo for ischemia in the inferior wall. Ordering Physician: Karen Pennington Referring Physician: Karen Pennington Performed By: Reyna Fields RCS
== END | disposition home or self-care (01) ==
LOC: CVS 13:26
PROVIDERS: PCP Family Medicine; Referring Provider Internal Medicine Cardiovascular Disease; Visit Provider Internal Medicine Cardiovascular Disease
DX: R94.31 Abnormal electrocardiogram [ECG] [EKG] (principal); I49.3 Ventricular premature depolarization; R00.2 Palpitations; I10 Essential (primary) hypertension
CPT/HCPCS: 93017; 93350

== ENCOUNTER 2024-01-05 08:57 | Day surgery (SDC) | payer MEDICARE, SELFPAY ==
--- NOTE | 2023-12-21 15:28 | PCM.HP.BLA ---
History and Physical Date of Admission: 01/05/24 This pleasant lady is here left heart catheterization. According to her, she was noted to have an irregular pulse by her chiropractor. Subsequently she went to her PCP. An ECG was done there. That showed PVCs in a bigeminal manner. Subsequently she has been referred to us for evaluation and management. She proceeded with an echocardiogram on 12/15/2023 that showed normal LV size and thickness and and an ejection fraction of 60%. Mild mitral valve insufficiency and right ventricular systolic pressure of 45 mmHg was noted. She then underwent a stress echocardiogram on 12/18/2023 that showed a occasional PVCs on ECG at rest, frequent PVCs with stress including a 4 beat run of nonsustained ventricular tachycardia. Patient denies feeling any palpitations. Denies any chest pains or shortness of breath either at rest or with exertion. No orthopnea. No PND. No ankle edema. No lightheadedness or dizziness. No syncope or presyncope. Intake Vital Signs: See EMR Intake Visit Reasons: [facility] Allergies lisinopril Allergy (Unknown, Verified 11/05/23 09:01) Cough Medications See EMR [facility] Medical History HTN (hypertension) Palpitations Scalp cyst Surgical History History of removal of cyst Family History Sister Breast cancer CVA (cerebral vascular accident)Father HypertensionBrother Hypertension Social History Smoking Status: Never smoker second hand exposure: No alcohol intake: never caffeine: Yes Type: coffee Number of servings: 6 what type of physical activity do you participate in: walking and running ROS Const Const: Negative for fatigue, weakness, headache(s), daytime sleepiness or difficulty sleeping Eyes Eyes: Negative for change in vision ENT ENT: Negative for headache(s), dizziness or Nosebleed/epistaxis Cardio Chest Pain: No Palpitations: Yes Edema: None Resp Respiratory: Negative for SOB with activity, SOB at rest, SOB orthopnea\SOB lying down or Cough GI GI: Negative nausea, vomiting or heartburn Neuro Neuro: Negative for dizziness, lightheadedness, near syncope, headache(s) or weakness Endo Endo: Negative for fatigue Cardiology Exam Const Appearance: comfortable and no acute distress Nutritional Appearance: well nourished Neck Neck: no JVD Carotids: Negative bruit Chest Auscultation: Bilateral: Clear to Auscultation Cardio Rate: regular rate Rhythm: regular rhythm and ectopic beats Heart sounds: S1 normal and S2 normal Neuro General: patient alert, patient awake and patient oriented x3 Extremities Lower Extremity Edema: None: Bilateral Supplemental Info Supplemental Information Echocardiogram from 12/15/2023: Interpretation Summary The left ventricular ejection fraction is 60 %. Mild (1+) mitral valve insufficiency. Moderate (2+) tricuspid valve insufficiency. Right ventricular systolic pressure estimated to be 45 mmHg. Aortic sclerosis, no stenosis. Mild-Moderate (1-2+) pulmonic valve insufficiency. Stress echocardiogram test from 12/17/2023: Interpretation Summary Occasional PVC on ECG at rest, frequent PVCs with stress including a 4 beat run of nonsustained VT. No diagnostic ischemic changes on stress ECG. No complaints of chest pain. Poststress echo images show inferior wall hypokinesis suggestive of inferior ischemia. Positive stress echo for ischemia in the inferior wall. Assessment and Plan Assessment and Plan (1) PVCs (premature ventricular contractions): Status: Acute Plan: On account of PVCs in the setting of abnormal stress test, she will proceed with heart catheterization. Depending on results, further recommendation will be made. (2) HTN (hypertension): Status: Chronic Plan: She will continue current medications. We will continue to monitor. (3) Abnormal ECG: Status: Chronic Plan: ECG done in the office showed sinus rhythm. Possible old AL versus lead placement. To assess this further, she underwent echocardiogram and stress echocardiogram. She will proceed with heart catheterization to assess further.
--- NOTE | 2023-12-28 09:05 | RAD_ITS ---
INDICATION: for heart cath EXAMINATION/TECHNIQUE: X-RAY - XR Chest 2 Views COMPARISON: No previous relevant examinations available for comparison.. FINDINGS: LIFE-SUPPORT AND LINES: 1. None HEART AND VESSELS: The cardiac silhouette, pulmonary vasculature have normal appearance. No evidence of congestive failure. LUNGS AND PLEURAL SPACES: Lungs are clear. No focal infiltrate, consolidation or effusions. No evidence of pneumothorax. No pulmonary mass is noted. MEDIASTINUM AND HILAR REGIONS: No masses adenopathy noted. No areas of calcification. Visualized upper airway is normal in position. BONY ELEMENTS: No acute bony changes noted. Mild wedging of midthoracic vertebra, particularly T8. No acute fractures noted RAD/Chest PA and Lateral IMPRESSION: 1. No evidence of acute cardiopulmonary process Electronically Signed: Landry Caro MD at 23:48 EDT ,
[2023-12-28 09:24] LABS: Hematocrit 40.9 % (37-47); Hemoglobin 13.8 g/dL (12.0-15.0); Mean Corp Hgb Conc 33.7 g/dL (32-36); Mean Corpuscular Hgb 29.7 pg (27.0-32.0); Mean Corpuscular Volume 88.1 fL (81-99); Mean Platelet Vol. 10.6 fl (6.2-12.0); Platelet Count 212 K/mm3 (150-450); RBC Distribution Width CV 13.8 % (11.6-14.6); RBC Distribution Width SD 44.4 fl (35.1-43.9); Red Blood Count 4.64 M/mm3 (4.2-5.4); White Blood Count 8.6 K/mm3 (4.4-11.0)
[2023-12-28 10:20] LABS: Anion Gap 5 (5-15); BUN 11 mg/dL (7-18); BUN/Creat Ratio 15.5 RATIO (10-20); Calcium,Total 9.2 mg/dL (8.5-10.1); Chloride 107 mmol/L (98-107); Creatinine, Serum 0.71 mg/dL (0.55-1.02); EST Glomerular Filtration Rate 85 mL/min (>60); Est Glom Filt Rate - Afr Amer 102 mL/min (>60); Glucose 92 mg/dL (74-106); Potassium 3.5 mmol/L (3.5-5.1); Sodium Level 139 mmol/L (136-145)
[2024-01-05 09:26] VITALS: BMI 23.1
--- NOTE | 2024-01-05 11:53 | CL.D_ITS ---
Patient Name: JESÚS JEFF Study Date: 01/05/2024 Performing: Karen Pennington MD Ht: 64 inches 162.56 cm : 1945 Wt: 134.99 lbs 61.23 kg Age: 78 Gender: female BSA: 1.66 PROCEDURE(S) PERFORMED [id number] CLINICAL PROFILE AND INDICATIONS Indications: Suspected CAD Heart Failure: None Stress/Imaging Stress Echocardiogram: Yes Result: Positive Intermediate RiskStress Echocardiogram: Positive Intermediate Risk CONCLUSIONS No angiographic CAD RECOMMENDATIONS Risk factor modification DESCRIPTION OF PROCEDURE The patient arrived to the procedure lab. The risks and benefits of the procedure as well as a full description of our services here and current unavailability of surgical backup were fully explained to the patient and/or their significant other prior to the catheterization. The Timeout was completed, verifying the correct patient and procedure. The patient's procedural site was prepped and draped in the usual fashion. Local anesthetic was given subcutaneously to right radial region with Lidocaine 2%. Using a modified Seldinger technique, arterial access was obtained via the right radial artery, a 6Fr sheath was inserted. Left Coronary Artery selective angiography was performed in multiple views using a 5 Fr. 4.0 [place] catheter. Right Coronary Artery selective angiography was then performed in multiple views using a 5 Fr. 4.0 [place] catheter.The arterial sheath was pulled and a TR Band was applied for hemostasis 10 ml of air CORONARY ANGIOGRAPHY DOMINANCE: Right Dominant LEFT MAIN: Angiographically normal LEFT ANTERIOR DESCENDING ARTERY: Angiographically normal CIRCUMFLEX ARTERY: Angiographically normal RIGHT CORONARY ARTERY: Angiographically normal COMPLICATIONS No Complications PROCEDURE MEDICATIONS Versed 1 mg IV Fentanyl 50 mcg IV Oxygen: 2 L/min via nasal cannula Heparin given IA 01/05/2024 11:10:15 Verapamil 2.5mg, Ntg 200mcgs, 2000 units of Heparin given IA 01/05/2024 11:10:15 IV Bolus: .9 NaCl 250 ml total 01/05/2024 11:15:00 SUMMARY OF HEMODYNAMIC DATA Time AIR REST NODUCER AO / () 10:57:39 AO 157/75 (106) SA 11:17:47 Signed By Karen Pennington MD On 01/05/2024 11:53:12 Karen Pennington MD
== END 2024-01-05 13:40 | disposition home or self-care (01) ==
LOC: CLSP 09:03
PROVIDERS: PCP Family Medicine; Referring Provider Internal Medicine Cardiovascular Disease; Visit Provider Internal Medicine Cardiovascular Disease
DX: I49.3 Ventricular premature depolarization (principal); I10 Essential (primary) hypertension; R94.31 Abnormal electrocardiogram [ECG] [EKG]; R94.39 Abnormal result of other cardiovascular function study
CPT/HCPCS: 36415; 71046; 80048; 85027; 93454; 99152; 99153; J7040; Q9967; C1769; C1894

== ENCOUNTER → 2025-04-25 | Outpatient (CLI) | payer MEDICARE, SELFPAY ==
--- NOTE | 2025-04-25 13:59 | ECHOD_ITS ---
Reason For Study Reason For Study: TRICUSPID REGURGITATION Procedure This was a 2D Doppler, Color Flow transthoracic echocardiogram. Exam performed in department. Left Ventricle Normal size and thickness. The LV ejection fraction is 65 %. Normal diastology for age. Right Ventricle Normal right ventricle. Atria The left and right atria are normal. Mitral Valve Mild (1+) mitral valve insufficiency. Tricuspid Valve Mild to moderate (1-2+) tricuspid valve insufficiency. Right ventricular systolic pressure estimated to be 37 mmHg. Aortic Valve Aortic sclerosis, no stenosis. Trivial aortic valve insufficiency. Pulmonic Valve Mild (1+) pulmonic valve insufficiency. Great Vessels Normal sized aortic root. Pericardium/Pleural No pericardial effusion. MMode/2D Measurements & Calculations LVIDd: 5.1 cm IVSd: 0.79 cm LVOT diam: 2.0 cm LVIDs: 3.1 cm LVPWd: 0.99 cm LVOT area: 3.2 cm2 RVDd: 3.7 cm FS: 39.2 % asc Aorta Diam: 3.2 cm LAV(MOD-bp): 41.3 ml LVAd ap4: 20.4 cm2 LAV(MOD-bp) Indexed: 24.9 ml/m2 LVLd ap4: 6.0 cm LAV(MOD-sp2): 41.7 ml EDV(MOD-sp4): 57.1 ml LAV(MOD-sp4): 36.6 ml EDV(sp4-el): 58.9 ml LVAs ap4: 11.5 cm2 LVLs ap4: 5.3 cm ESV(MOD-sp4): 21.2 ml ESV(sp4-el): 21.0 ml EF(MOD-sp4): 62.9 % EF(sp4-el): 64.3 % LVAd ap2: 19.0 cm2 SV(MOD-sp4): 35.9 ml SV(MOD-sp2): 26.8 ml LVLd ap2: 6.3 cm SI(MOD-sp4): 21.6 ml/m2 SI(MOD-sp2): 16.2 ml/m2 EDV(MOD-sp2): 47.6 ml EDV(sp2-el): 48.4 ml LVAs ap2: 11.5 cm2 LVLs ap2: 5.4 cm ESV(MOD-sp2): 20.7 ml ESV(sp2-el): 20.6 ml EF(MOD-sp2): 56.4 % SV(sp4-el): 37.8 ml Ao sinus diam: 2.[address] Junction: 2.3 cm LA dimension(2D): 3.3 cm LA A4 area: 15.9 cm2 RA A4 area: 12.7 cm2 TAPSE: 2.3 cm Time Measurements MV dec time: 0.21 sec Doppler Measurements & Calculations MV E max masoud: 85.2 cm/sec Lat Peak E' Masoud: 7.4 cm/sec Med Peak E' Masoud: 9.0 cm/sec MV A max masoud: 92.9 cm/sec E/E' lat: 11.6 E/E' med: 9.5 MV E/A: 0.92 MV dec slope: 414.2 cm/sec2 Ao V2 max: 142.8 cm/sec LV V1 max: 107.2 cm/sec Ao max P.2 mmHg LV V1 max P.6 mmHg Ao V2 mean: 91.5 cm/sec LV V1 mean P.5 mmHg Ao mean P.0 mmHg LV V1 mean: 73.3 cm/sec Ao V2 VTI: 32.9 cm LV V1 VTI: 27.0 cm AV (velocity ratio): 0.82 KHOI(I,D): 2.7 cm2 KHOI(V,D): 2.4 cm2 SV(LVOT): 87.6 ml PA V2 max: 89.7 cm/sec PI end-d masoud: 87.2 cm/sec TR max masoud: 236.1 cm/sec TR max P.3 mmHg ECHO/Echo Complete Interpretation Summary The LV ejection fraction is 65 %. Mild (1+) mitral valve insufficiency. Mild to moderate (1-2+) tricuspid valve insufficiency. Right ventricular systolic pressure estimated to be 37 mmHg. Aortic sclerosis, no stenosis. Mild (1+) pulmonic valve insufficiency. Ordering Physician: Karen Pennington Referring Physician: MD Zena Praful Performed By: Diane Medina RDCS
== END | disposition home or self-care (01) ==
LOC: CVS 13:58
PROVIDERS: PCP Family Medicine; Referring Provider Internal Medicine Cardiovascular Disease; Visit Provider Internal Medicine Cardiovascular Disease
DX: I07.1 Rheumatic tricuspid insufficiency (principal)
CPT/HCPCS: 93306